=== PATIENT | male | born 1935 | race Caucasian/White ===

== ENCOUNTER 2019-05-22 17:21 | Inpatient (IN) | payer OTHER ==
--- NOTE | 2019-05-22 18:55 | PDOC ---
Attending Attestation - Resident Resident Name: Bolivar Morejon - ED Attending Attestation I have performed the following: I have examined & evaluated the patient, The case was reviewed & discussed with the resident, I agree w/resident's findings & plan - HPI HPI: 05/22/19 19:17 Pt comes with fluid overload and SOB 05/22/19 19:18 Pt immediately given O2 facemask 100%NRB, 2SLNTG, 1inch nitro paste; biPAP started. 80 lasix, IV placed, labs ordered. Pt will have CXR and EKG Pt will get duplex dopplers. - Physicial Exam PE: 05/22/19 23:19 Pt has + pitting edema up legs; pt has early cellulitis on lower leg Pt has no fevers and no chills. Rapid afib and breathing heavily Coarse breath sounds Heat irreg irreg and tahcycardic Abd soft NT ND No flank pain No rashes. - Medical Decision Making 05/22/19 19:19 Vitals down to 120HR BP 138 05/22/19 20:04 CBC is normal Chem normal Card enzymes normal BUN/Cr normal; slightly prerenal EKG rapid afib CXR: bilateral fluffy effusion 05/22/19 21:41 Pt has +UTI and + cellulitis on the right lower leg; he will be treated with levaquin IV Pt has elevated D-Dimer and he quit his eliquis so he likely had DVT/PE and we will treat with Lovenox 05/22/19 22:08 Patient Name: ABBI LOTT THIS IS A PRELIMINARY REPORT FROM [facility] DATE OF SERVICE: 2019-05-22 20:50:43 IMAGES: [id number] EXAM: CHEST CTA, CT pulmonary angiogram. HISTORY: Suspected pulmonary embolus. 83-year-old male. COMPARISON: None. FINDINGS: Good opacification of the pulmonary arteries is seen into the segmental branches. No intraluminal filling defects. ASVD of the aorta. The aorta is without dissection. The anterior mediastinal fat is well preserved. Cardiomegaly with four-chamber enlargement. Aortic and mitral valve disease. Proximal two-vessel coronary artery disease. No pericardial effusion. No hilar or mediastinal adenopathy. Extremely large bilateral pleural effusions. Near-complete collapse of both the right and left lower lobes. Thyroid gland is normal in appearance. No axillary adenopathy. Upper abdomen is unremarkable. Ankylosis of the entire cervical and thoracic spine within the field of view. IMPRESSION No evidence of pulmonary embolus. Extremely large bilateral pleural effusions. Near-complete collapse of both the right and left lower lobes. Cardiomegaly with four-chamber enlargement. Pulmonary venous hypertension. Mild incipient pulmonary edema. 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 05/22/19 22:09 Pt will be admitted for pleural effusions. 05/22/19 22:22 Dr. Cristina is aware of the patient and he wants the patient to be admitted to the ICU
[2019-05-22] MEDS ORDERED: NITROGLYCERIN 2% OINTMENT - 1GM PACKET TD ONE ×2 (18:59→19:00)
[2019-05-22] MEDS ORDERED: FUROSEMIDE 40 MG/4 ML INJECTABLE VIAL ONE (18:59)
[2019-05-22] MEDS ORDERED: NITROGLYCERIN SUBLINGUAL 1/150 0.4 MG TAB SL ONE (19:00)
[2019-05-22] MEDS ORDERED: dilTIAZem HCL 125 MG/25 ML - 25 ML VIAL ONE (19:10)
[2019-05-22] MEDS ORDERED: dilTIAZem HCL 50 MG/10 ML - 10 ML VIAL IVPUSH ONE (19:10)
[2019-05-22] MEDS ORDERED: SODIUM CHLORIDE 0.9% 500 ML INFUS.BAG IV ONE (19:13)
[2019-05-22] MEDS ORDERED: FUROSEMIDE 40 MG/4 ML INJECTABLE VIAL IVPUSH ONE ×2 (19:14→23:28)
--- NOTE | 2019-05-22 19:22 | PDOC ---
History of Present Illness - General History Source: Patient, Family Exam Limitations: No Limitations - History of Present Illness Initial Comments: 83 y/o F, pmh of parkinsons, htn, dm, Aa-fib, prostate cancer- status unknown, presents to the ED c/o of shortness of breath of 1 day duration that began spontaneously today morning. In the ED pt was hypoxic to the 80s, had afib with rvr to the 140s and b/l LE swelling. He does not follow a actuarial director and only follows his PCP Dr. Flor. Denies f/c/n/v/chest pain, back pain, abdominal pain, headaches, changes in vision, diarrhea, nuasea, vomit. 05/22/19 19:19 Associated Symptoms: reports: denies symptoms, shortness of breath. denies: chest pain, cough, diaphoresis, fever/chills, headaches, nausea/vomiting, rash, seizure, weakness <Bolivar Morejon - Last Filed: 05/22/19 20:47> <Carina Leon - Last Filed: 05/22/19 22:18> - General Chief Complaint: Edema Stated Complaint: SOB/SWELLIN IN LEGS BILAT Time Seen by Provider: 05/22/19 18:27 Past History - Travel Traveled outside of the country in the last 30 days: No Close contact w/someone who was outside of country & ill: No - Past Medical History Cancer: Yes (prostate) Cardiac Disorders: Yes (afib) COPD: No Diabetes: Yes HTN: Yes Other medical history: parkinson - Surgical History Abdominal Surgery: Yes (hernia inguinal) - Immunization History Immunization Up to Date: Yes - Psycho Social/Smoking Cessation Hx Smoking History: Former smoker Have you smoked in the past 12 months: No If you are a former smoker, when did you quit?: 50 years ago Information on smoking cessation initiated: No Hx Alcohol Use: No Drug/Substance Use Hx: No Substance Use Type: None Hx Substance Use Treatment: No <Bolivar Morejon - Last Filed: 05/22/19 20:47> <Carina Leon - Last Filed: 05/22/19 22:18> - Past Medical History Allergies/Adverse Reactions: Allergies Allergy/AdvReac Type Severity Reaction Status Date / Time aspirin Allergy Verified 05/22/19 20:05 Home Medications: Ambulatory Orders Tamsulosin HCl [Flomax -] 0.4 mg PO DAILY 03/14/16 Carbidopa/Levodopa [Sinemet -] 1 each PO TID #0 tablet 03/18/16 Lisinopril [Prinivil] 5 mg PO DAILY #0 tablet 03/18/16 Metoprolol Tartrate [Lopressor -] 50 mg PO BID #0 tablet 03/18/16 Glipizide/Metformin HCl [Glipizide-Metformin 5-500 mg] 1 tab PO BID 05/22/19 Review of Systems - Review of Systems Able to Perform ROS?: Yes Is the patient limited Danish proficient: No Constitutional: Yes: Symptoms Reported, Weight Stable. No: Chills, Diaphoresis , Fever, Weakness HEENTM: Yes: Symptoms Reported. No: Blurred Vision Respiratory: Yes: Symptoms reported, Cough, Shortness of Breath. No: Wheezing, Productive cough Cardiac (ROS): Yes: Symptoms Reported, Edema, Irregular Heart Rate. No: Chest Pain, Lightheadedness, Palpitations, Chest Tightness ABD/GI: Yes: Symptoms Reported. No: Constipated, Diarrhea, Nausea, Vomiting : Yes: Symptoms Reported Musculoskeletal: Yes: Symptoms Reported. No: Back Pain Neurological: Yes: Symptoms reported. No: Headache, Numbness, Paresthesia, Tingling, Tremors, Weakness <Bolivar Morejon - Last Filed: 05/22/19 20:47> *Physical Exam - Vital Signs Last Vital Signs Temp Pulse Resp BP Pulse Ox 97.6 F 119 H 22 H 165/105 H 99 05/22/19 18:20 05/22/19 19:05 05/22/19 19:05 05/22/19 19:05 05/22/19 18:20 - Physical Exam General Appearance: Yes: Appropriately Dressed, Mild Distress, Cachetic HEENT: positive: EOMI, BECKY, Normal ENT Inspection, Pharynx Normal Neck: positive: Trachea midline, Normal Thyroid, Supple Respiratory/Chest: positive: Lungs Clear, Normal Breath Sounds Cardiovascular: positive: S1, S2, Edema, Tachycardia, Irregularly Irregular. negative: Regular Rhythm, Regular Rate, Murmur, Gallop/S3, Gallop/S4 Vascular Pulses: Dorsalis-Pedis (R): 2+, Doralis-Pedis (L): 2+ Gastrointestinal/Abdominal: positive: Normal Bowel Sounds, Soft Extremity: positive: Pedal Edema. 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 negative: Motor Strength 5/5 <Bolivar Morejon - Last Filed: 05/22/19 20:47> - Vital Signs Last Vital Signs Temp Pulse Resp BP Pulse Ox 97.6 F 105 H 18 133/91 100 05/22/19 18:20 05/22/19 19:57 05/22/19 19:57 05/22/19 19:57 05/22/19 19:57 <Carina Leon - Last Filed: 05/22/19 22:18> ED Treatment Course - LABORATORY CBC & Chemistry Diagram: 05/22/19 19:10 05/22/19 19:10 - RADIOLOGY Radiology Studies Ordered: Category Date Time Status CHEST X-RAY PORTABLE* [RAD] Stat Radiology 05/22/19 19:13 Ordered <Bolivar Morejon - Last Filed: 05/22/19 20:47> - LABORATORY CBC & Chemistry Diagram: 05/22/19 19:10 05/22/19 19:10 - ADDITIONAL ORDERS Additional order review: Laboratory Results 05/22/19 05/22/19 05/22/19 20:22 19:41 19:10 PT with INR 12.90 INR 1.09 PTT (Actin FS) 36.0 D-Dimer Sodium Potassium Chloride Carbon Dioxide Anion Gap BUN Creatinine Est GFR (CKD-EPI)AfAm Est GFR (CKD-EPI)NonAf Random Glucose Lactic Acid 1.5 Calcium Total Bilirubin AST ALT Alkaline Phosphatase Creatine Kinase Troponin I B-Natriuretic Peptide Total Protein Albumin Urine Color Yellow Urine Appearance Clear Urine pH 5.0 Ur Specific [place] 1.018 Urine Protein 1+ H Urine Glucose (UA) Trace Urine Ketones Negative Urine Blood 2+ H Urine Nitrite Positive H Urine Bilirubin Negative Urine Urobilinogen 1.0 Ur Leukocyte Esterase 1+ H Urine WBC (Auto) 15 Urine RBC (Auto) 2 Urine Casts (Auto) 1 U Epithel Cells (Auto) 0.9 Urine Bacteria (Auto) 19.3 05/22/19 05/22/19 05/22/19 19:10 19:10 19:10 PT with INR INR PTT (Actin FS) D-Dimer 1383 H Sodium 141 141 Potassium 4.0 4.0 Chloride 107 107 Carbon Dioxide 29 26 Anion Gap 5 L 8 BUN 22.3 H 22.4 H Creatinine 0.6 0.6 Est GFR (CKD-EPI)AfAm 108.52 108.52 Est GFR (CKD-EPI)NonAf 93.63 93.63 Random Glucose 208 H 198 H Lactic Acid Calcium 8.7 8.7 Total Bilirubin 0.7 AST 20 ALT 34 Alkaline Phosphatase 122 H Creatine Kinase 42 Troponin I < 0.02 B-Natriuretic Peptide 4864.3 H Total Protein 7.0 Albumin 3.4 Urine Color Urine Appearance Urine pH Ur Specific [place] Urine Protein Urine Glucose (UA) Urine Ketones Urine Blood Urine Nitrite Urine Bilirubin Urine Urobilinogen Ur Leukocyte Esterase Urine WBC (Auto) Urine RBC (Auto) Urine Casts (Auto) U Epithel Cells (Auto) Urine Bacteria (Auto) 05/22/19 19:10 RBC 4.48 MCV 95.0 MCHC 33.2 RDW 14.7 MPV 9.5 Neutrophils % 84.3 H Lymphocytes % 7.1 L Monocytes % 7.7 Eosinophils % 0.4 Basophils % 0.5 - RADIOLOGY Radiology Studies Ordered: Category Date Time Status CHEST CTA [CT] Stat CT Scan 05/22/19 20:22 Taken DUPLEX VASCUL US-2LEGS [US] Stat Ultrasound 05/22/19 19:16 Taken - Medications Given in the ED: ED Medications Discontinued Medications Generic Name Dose Route Start Last Admin Trade Name Freq PRN Reason Stop Dose Admin Diltiazem HCl 10 mg 05/22/19 19:10 05/22/19 19:15 Cardizem Injection - IVPUSH 05/22/19 19:11 10 mg ONCE ONE Administration Enoxaparin Sodium 80 mg 05/22/19 20:24 05/22/19 20:34 Lovenox - SQ 05/22/19 20:25 80 mg ONCE ONE Administration Furosemide 80 mg 05/22/19 19:14 05/22/19 19:05 Lasix Injection - IVPUSH 05/22/19 19:15 80 mg ONCE ONE Administration Levofloxacin 500 mg in 100 mls @ 100 mls/hr 05/22/19 20:48 05/22/19 21:45 Levaquin 500 Mg Premixed Ivpb - IVPB 05/22/19 21:47 100 mls/hr ONCE ONE Administration Protocol Nitroglycerin 0.8 mg 05/22/19 19:00 05/22/19 19:00 Nitrostat - SL 05/22/19 19:01 0.8 mg ONCE ONE Administration Nitroglycerin 1 inch 05/22/19 19:00 05/22/19 19:05 Nitro-Bid 2% Paste - TD 05/22/19 19:01 1 inch ONCE ONE Administration Sodium Chloride 250 ml 05/22/19 19:13 05/22/19 19:30 Normal Saline - IV 05/22/19 19:14 250 ml ONCE ONE Administration <Carina Leon - Last Filed: 05/22/19 22:18> Medical Decision Making - Medical Decision Making 83 y/o F, pmh of parkinsons, htn, dm, Aa-fib, prostate cancer- status unknown, presents to the ED c/o of shortness of breath of 1 day duration that began spontaneously #Shortness of breath 2/2 to A-fib w/ RVR and fluid overload PE: significant b/l LE edema EKG trops trend Cardiac profile ordered BNP ordered f/u cbc, cmp D dimers Diltizem 10 IV push given Lasix 80 SL Nitroglycerine given CXR for pul edema will monitor on tele contacted Dr. Flor, will wait for his response 05/22/19 19:32 05/22/19 19:36 <Bolivar Morejon - Last Filed: 05/22/19 20:47> Discharge <Bolivar Morejon - Last Filed: 05/22/19 20:47> - Discharge Information Problems reviewed: Yes - Admission Yes <Carina Leon - Last Filed: 05/22/19 22:18> - Discharge Information Clinical Impression/Diagnosis: Afib, Hypertension, Diabetes mellitus, CHF (congestive heart failure), UTI ( urinary tract infection), Cellulitis, Tachycardia, Dyspnea, Hypoxemia Condition: Critical - Follow up/Referral Referrals: Malou Cristina MD [Primary Care Provider] -
[2019-05-22 19:25] LABS: BASO % 0.5 % (0-2.0); EOS % 0.4 % (0-4.5); HEMATOCRIT 42.5 % (35.4-49); HEMOGLOBIN 14.1 GM/dL (11.7-16.9); LYMPH % 7.1 % (8-40); MCH 31.5 pg (25.7-33.7); MCHC 33.2 g/dl (32.0-35.9); MEAN PLT VOLUME 9.5 fl (7.5-11.1); MONO % 7.7 % (3.8-10.2); NEUT % 84.3 % (42.8-82.8); PLATELET COUNT 244 K/MM3 (134-434); RBC 4.48 M/mm3 (4.00-5.60); RDW 14.7 % (11.9-15.9); WHITE BLOOD COUNT 9.5 K/mm3 (4.0-10.0)
[2019-05-22 19:52] LABS: ALBUMIN 3.4 g/dl (3.4-5.0); BILIRUBIN,TOTAL 0.7 mg/dL (0.2-1); BLOOD UREA NITROGEN 22.3 mg/dL (7-18); CALCIUM 8.7 mg/dL (8.5-10.1); CREATININE 0.6 mg/dL (0.55-1.3)
[2019-05-22 20:23] LABS: EPI CELLS 0.9 /HPF (0-5/HPF); HYALINE CASTS 1 /lpf (0-8); URINE APPEARANCE CLEAR; URINE BACTERIA 19.3 /hpf (NEGATIVE); URINE BILIRUBIN NEGATIVE (NEGATIVE); URINE COLOR YELLOW; URINE GLUCOSE (UA) TRACE (NEGATIVE); URINE KETONE NEGATIVE (NEGATIVE); URINE LEUK ESTERASE 1+ (NEGATIVE); URINE NITRITE POSITIVE (NEGATIVE); URINE PROTEIN 1+ (NEGATIVE); URINE RBC 2 /hpf (0-4); URINE WBC 15 /hpf (0-5)
[2019-05-22] MEDS ORDERED: ENOXAPARIN NA (PORCINE) 80 MG/0.8 ML DISP.SYRIN SQ ONE ×2 (20:24→20:29)
[2019-05-22 20:27] LABS: N-TERMINAL BNP 4864.3 pg/ml (5-450)
[2019-05-22 20:35] LABS: ANION GAP 8 MMOL/L (8-16); BLOOD UREA NITROGEN 22.4 mg/dL (7-18); CALCIUM 8.7 mg/dL (8.5-10.1); CHLORIDE 107 mmol/L (98-107); CO2 26 mmol/L (21-32); CREATININE 0.6 mg/dL (0.55-1.3); GLUCOSE,RANDOM 198 mg/dL (74-106); SODIUM 141 mmol/L (136-145)
[2019-05-22 21:05] LABS: INR 1.09 (0.83-1.09); PROTHROMBIN TIME (PATIENT) 12.9 SEC (9.7-13.0)
[2019-05-22] MEDS ORDERED: METOPROLOL TARTRATE 5 MG/5 ML VIAL IVPUSH PRN (23:27)
[2019-05-22] MEDS ORDERED: ALBUTEROL SO4 0.083% IH SOL 2.5 MG/3 ML VIAL.NEB. NEB PRN (23:32)
[2019-05-22 23:33] LABS: ARTERIAL BLD GAS O2 SATURATION 99.9 % (95-98); ARTERIAL BLOOD GAS BASE EXCESS 4.9 meq/l (-2-2); ARTERIAL BLOOD GAS PCO2 36.8 mmHg (35-45); ARTERIAL BLOOD GAS PO2 485 mmHg (80-100); ARTERIAL BLOOD GAS pH 7.49 (7.35-7.45)
[2019-05-22 23:34] LABS: ALLENS TEST POSITIVE
--- NOTE | 2019-05-22 23:39 | CONSULT ---
Consultation: REQUESTING PROVIDER: CONSULT REQUEST: We have been asked to medically evaluate this patient for respiratory distress & altered mental status. HISTORY OF PRESENT ILLNESS: 83 y.o. M HTN, DM, A-fib (prescribed eliquis by Dr. Flor although has not been taking it), prostate CA (s/p hormone therapy tx- no chemo/rad/surg) presenting with SOB and AMS x 1 week. History obtained mostly from son at bedside. Over the past week he has become "not himself", and seems altered with increasing shortness of breath on exertion, now present at rest. He has been having frequent nighttime awakenings and gait has been unsteady. Also endorses a nonproductive cough for the past few days. For the past few weeks he has also had increasing b/l LE edema. 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 Sees Dr. Flor for primary care. Diagnosed w/ A-fib in the past few months & was started on Eliquis although the patient has been non-compliant. Denies fevers/ chills/ LARSON/ N/V/D/ orthopnea/ paroxysmal nocturnal dyspnea/ weight changes/ appetite changes. REVIEW OF SYSTEMS: CONSTITUTIONAL: Absent: fever, chills, diaphoresis, generalized weakness, malaise, loss of appetite, weight change HEENT: Absent: rhinorrhea, nasal congestion, throat pain, throat swelling, difficulty swallowing, mouth swelling, ear pain, eye pain, visual changes CARDIOVASCULAR: A-fib w/ RVR, peripheral edema Absent: chest pain, syncope, palpitations, lightheadedness RESPIRATORY: shortness of breath Absent: cough, dyspnea with exertion, orthopnea, wheezing, stridor, hemoptysis GASTROINTESTINAL: Absent: abdominal pain, abdominal distension, nausea, vomiting, diarrhea, constipation, melena, hematochezia GENITOURINARY: hesitancy, polyuria Absent: dysuria, frequency, urgency, hematuria, flank pain, genital pain MUSCULOSKELETAL: Absent: myalgia, arthralgia, joint swelling, back pain, neck pain SKIN: Absent: rash, itching, pallor HEMATOLOGIC/IMMUNOLOGIC: Absent: easy bleeding, easy bruising, lymphadenopathy, frequent infections ENDOCRINE: Absent: unexplained weight gain, unexplained weight loss, heat intolerance, cold intolerance NEUROLOGIC: , unsteady gait, mental status changes Absent: headache, focal weakness or paresthesias, dizziness, seizure, bladder or bowel incontinence PSYCHIATRIC: Absent: anxiety, depression, suicidal or homicidal ideation, hallucinations. PHYSICAL EXAMINATION Vital Signs - 24 hr 05/22/19 05/22/19 05/22/19 17:45 18:20 19:05 Temperature 97.4 F L 97.6 F Pulse Rate 124 H 130 H Pulse Rate [ 119 H Apical] Respiratory 20 32 H 22 H Rate Blood Pressure 197/121 H Blood Pressure 165/105 H [Left Arm] Blood Pressure [Right Arm] O2 Sat by Pulse 96 99 Oximetry (%) 05/22/19 05/22/19 05/22/19 19:10 19:15 19:30 Temperature Pulse Rate Pulse Rate [ 115 H 94 H Apical] Respiratory 21 H 26 H Rate Blood Pressure Blood Pressure [Left Arm] Blood Pressure 132/84 113/88 [Right Arm] O2 Sat by Pulse 100 100 100 Oximetry (%) 05/22/19 05/22/19 05/22/19 19:50 19:57 22:30 Temperature Pulse Rate Pulse Rate [ 104 H 105 H 100 H Apical] Respiratory 24 H 18 22 H Rate Blood Pressure Blood Pressure 139/78 [Left Arm] Blood Pressure 133/91 133/91 [Right Arm] O2 Sat by Pulse 100 100 100 Oximetry (%) GENERAL: AOx1 oriented to self not time or place. HEENT: NCAT. L cheek superficial scrape LUNGS: B/l crackles predominantly lower lobes, present minimally in upper lobes. On BIPAP. No incr work of breathing no use of accessory muscles HEART: A-fib w/ RVR. Soft murmur heard ABDOMEN: Soft NTND no suprapubic tenderness. + bowel sounds MUSCULOSKELETAL: No CVA tenderness. EXTREMITIES: Pulses palpated 2+ b/l. 2+ pitting edema, weeping to R anterior ortega. No calf tenderness Laboratory Results - last 24 hr 05/22/19 05/22/19 05/22/19 19:10 19:10 19:10 WBC 9.5 RBC 4.48 Hgb 14.1 Hct 42.5 D MCV 95.0 MCH 31.5 MCHC 33.2 RDW 14.7 Plt Count 244 MPV 9.5 Absolute Neuts (auto) 8.0 Neutrophils % 84.3 H Lymphocytes % 7.1 L Monocytes % 7.7 Eosinophils % 0.4 Basophils % 0.5 Nucleated RBC % 0 PT with INR INR PTT (Actin FS) D-Dimer 1383 H Puncture Site ABG pH ABG pCO2 at Pt Temp ABG pO2 at Pt Temp ABG HCO3 ABG O2 Sat (Measured) ABG O2 Content ABG Base Excess Conner Test O2 Delivery Device Oxygen Flow Rate Vent Mode Vent Rate Pressure Support Vent Sodium 141 Potassium 4.0 Chloride 107 Carbon Dioxide 26 Anion Gap 8 BUN 22.4 H Creatinine 0.6 Est GFR (CKD-EPI)AfAm 108.52 Est GFR (CKD-EPI)NonAf 93.63 Random Glucose 198 H Lactic Acid Calcium 8.7 Total Bilirubin AST ALT Alkaline Phosphatase Creatine Kinase 42 Troponin I < 0.02 B-Natriuretic Peptide Total Protein Albumin Urine Color Urine Appearance Urine pH Ur Specific [place] Urine Protein Urine Glucose (UA) Urine Ketones Urine Blood Urine Nitrite Urine Bilirubin Urine Urobilinogen Ur Leukocyte Esterase Urine WBC (Auto) Urine RBC (Auto) Urine Casts (Auto) U Epithel Cells (Auto) Urine Bacteria (Auto) 05/22/19 05/22/19 05/22/19 19:10 19:10 19:41 WBC RBC Hgb Hct MCV MCH MCHC RDW Plt Count MPV Absolute Neuts (auto) Neutrophils % Lymphocytes % Monocytes % Eosinophils % Basophils % Nucleated RBC % PT with INR INR PTT (Actin FS) D-Dimer Puncture Site ABG pH ABG pCO2 at Pt Temp ABG pO2 at Pt Temp ABG HCO3 ABG O2 Sat (Measured) ABG O2 Content ABG Base Excess Conner Test O2 Delivery Device Oxygen Flow Rate Vent Mode Vent Rate Pressure Support Vent Sodium 141 Potassium 4.0 Chloride 107 Carbon Dioxide 29 Anion Gap 5 L BUN 22.3 H Creatinine 0.6 Est GFR (CKD-EPI)AfAm 108.52 Est GFR (CKD-EPI)NonAf 93.63 Random Glucose 208 H Lactic Acid 1.5 Calcium 8.7 Total Bilirubin 0.7 AST 20 ALT 34 Alkaline Phosphatase 122 H Creatine Kinase Troponin I B-Natriuretic Peptide 4864.3 H Total Protein 7.0 Albumin 3.4 Urine Color Yellow Urine Appearance Clear Urine pH 5.0 Ur Specific [place] 1.018 Urine Protein 1+ H Urine Glucose (UA) Trace Urine Ketones Negative Urine Blood 2+ H Urine Nitrite Positive H Urine Bilirubin Negative Urine Urobilinogen 1.0 Ur Leukocyte Esterase 1+ H Urine WBC (Auto) 15 Urine RBC (Auto) 2 Urine Casts (Auto) 1 U Epithel Cells (Auto) 0.9 Urine Bacteria (Auto) 19.3 05/22/19 05/22/19 20:22 23:20 WBC RBC Hgb Hct MCV MCH MCHC RDW Plt Count MPV Absolute Neuts (auto) Neutrophils % Lymphocytes % Monocytes % Eosinophils % Basophils % Nucleated RBC % PT with INR 12.90 INR 1.09 PTT (Actin FS) 36.0 D-Dimer Puncture Site Left radial ABG pH 7.49 H ABG pCO2 at Pt Temp 36.8 ABG pO2 at Pt Temp 485 H ABG HCO3 28.0 H ABG O2 Sat (Measured) 99.9 H ABG O2 Content 20.1 ABG Base Excess 4.9 H Conner Test Positive O2 Delivery Device Bipap Oxygen Flow Rate 100% Vent Mode S/t Vent Rate 14 Pressure Support Vent 12/5 Sodium Potassium Chloride Carbon Dioxide Anion Gap BUN Creatinine Est GFR (CKD-EPI)AfAm Est GFR (CKD-EPI)NonAf Random Glucose Lactic Acid Calcium Total Bilirubin AST ALT Alkaline Phosphatase Creatine Kinase Troponin I B-Natriuretic Peptide Total Protein Albumin Urine Color Urine Appearance Urine pH Ur Specific [place] Urine Protein Urine Glucose (UA) Urine Ketones Urine Blood Urine Nitrite Urine Bilirubin Urine Urobilinogen Ur Leukocyte Esterase Urine WBC (Auto) Urine RBC (Auto) Urine Casts (Auto) U Epithel Cells (Auto) Urine Bacteria (Auto) Active Medications Generic Name Dose Route Start Last Admin Trade Name Freq PRN Reason Stop Dose Admin Albuterol Sulfate 1 amp 05/22/19 23:32 Ventolin 0.083% Nebulizer Soln - NEB Q1H PRN SHORT OF BREATH/WHEEZING Chlorhexidine Gluconate 1 applic 05/23/19 22:00 Hibiclens For Decolonization - TP HS YOON Enoxaparin Sodium 80 mg 05/23/19 10:00 Lovenox - SQ BID YOON Furosemide 80 mg 05/22/19 23:28 Lasix Injection - IVPUSH 05/22/19 23:29 ONCE ONE Furosemide 60 mg 05/23/19 10:00 Lasix Injection - IVPUSH DAILY YOON Insulin Aspart 1 vial 05/23/19 07:00 Novolog Vial Sliding Scale - SQ ACHS YOON Protocol Metoprolol Tartrate 50 mg 05/22/19 23:30 Lopressor - PO BID [facility] Metoprolol Tartrate 5 mg 05/22/19 23:27 Lopressor Injection - IVPUSH Q4H PRN HYPERTENSION Mupirocin 1 applic 05/23/19 10:00 Bactroban Ointment (For Decolonization) - NS 05/28/19 09:59 BID YOON ASSESSMENT/PLAN: 83 y.o. M HTN, DM, A-fib (noncompliant w/ eliquis), prostate CA (s/p hormone therapy tx) presenting with SOB and AMS x 1 week. Found to have extensive b/l pleural effusions. #Neuro -AOx1 altered from baseline (as per son pt is AOx3) -neuro checks #CV -Hypertensive emergency: resolved; s/p Diltiazem, nitro (SL & paste in ED). -Monitor vitals closely -EKG shows A-fib w/ RVR rate in 140s -C/w home dose metoprolol 50mg PO BID -Lopressor 5mg IV PRN -BNP 4864 -Trops neg x1 -F/u Echo -S/p 80mg Lasix IV; orered +1 dose 80mg Lasix IV -S/p diltiazem 10mg IV, SL nitro & nitro paste in ED -Continuing home metoprolol; Lopressor IV PRN -cardio consulted (Dr. Rodriguez) -Strict Is & Os -Daily weights -DVT study negative #Pulm -D-dimer elevated -ABG (taken post- bipap)-- pH 7.49 pO2 485-- o2 decreased in ED satting well on bipap -CTA chest shows extremely large b/l pleural effusions. Near complete collapse of both R & L lower lobes. -ICU monitoring -PRN nebulizer -F/u repeat CXR in AM -Consider pleural eff. tap to assess effusion source-- chf vs mets? #Endo -BGMs ACHS -ISS -F/u HbA1c # -UA 1+ protein , 2+ blood, 1+ LE & nitrite -F/u urine cx -Pérez inserted, follow strict outputs -Starting ceftriaxone #ID -F/u blood cx's -S/p 1 dose levaquin in ED #FEN -No fluids -Trend lytes replete prn -NPO #PPX -Full dose lovenox Dispo: We will continue to follow the patient. Thank you for this consultative opportunity. ATTENDING PHYSICIAN STATEMENT I saw and evaluated the patient. I reviewed the resident's note and discussed the case with the resident. I agree with the resident's findings and plan as documented. SUBJECTIVE: OBJECTIVE: ASSESSMENT AND PLAN:
[2019-05-23] MEDS ORDERED: METOPROLOL TARTRATE 50 MG TABLET (FP) ONE (00:32)
[2019-05-23] MEDS ORDERED: FUROSEMIDE 40 MG/4 ML INJECTABLE VIAL ONE (00:32)
[2019-05-23] MEDS: METOPROLOL TARTRATE 50 MG TABLET (FP) PO SCH ×3 (00:41→21:06)
[2019-05-23 02:03] VITALS: BMI 27.3
[2019-05-23 07:36] LABS: BASO % 0.6 % (0-2.0); EOS % 0.6 % (0-4.5); HEMATOCRIT 39.4 % (35.4-49); HEMOGLOBIN 13.1 GM/dL (11.7-16.9); LYMPH % 10.6 % (8-40); MCH 31.2 pg (25.7-33.7); MCHC 33.1 g/dl (32.0-35.9); MONO % 9.5 % (3.8-10.2); NEUT % 78.7 % (42.8-82.8); PLATELET COUNT 223 K/MM3 (134-434); RBC 4.19 M/mm3 (4.00-5.60); RDW 14.2 % (11.9-15.9); WHITE BLOOD COUNT 8.8 K/mm3 (4.0-10.0)
[2019-05-23 07:49] LABS: BLOOD UREA NITROGEN 17.2 mg/dL (7-18); CALCIUM 8.4 mg/dL (8.5-10.1); CREATININE 0.5 mg/dL (0.55-1.3); MAGNESIUM 1.8 mg/dL (1.8-2.4); POTASSIUM 3.4 mmol/L (3.5-5.1); TOT PROT 6.4 g/dl (6.4-8.2)
[2019-05-23 07:53] LABS: INR 1.27 (0.83-1.09)
[2019-05-23 07:55] LABS: ACTIVATED PTT 38.5 SECONDS (25.2-36.5)
[2019-05-23] MEDS ORDERED: ENOXAPARIN NA (PORCINE) 80 MG/0.8 ML DISP.SYRIN SQ SCH (10:00)
[2019-05-23] MEDS ORDERED: FUROSEMIDE 40 MG/4 ML INJECTABLE VIAL IVPUSH SCH (10:00)
[2019-05-23] MEDS ORDERED: PNEUMOC 13-VAL CONJ-DIP CRM/PF 0.5 ML DISP.SYRIN IM ONE (10:00)
[2019-05-23] MEDS ORDERED: cefTRIAXone SODIUM 1 GM VIAL ONE (10:07)
[2019-05-23] MEDS ORDERED: DEXTROSE 5%-WATER - 50 ML IVPB ONE (10:08)
[2019-05-23] MEDS: FUROSEMIDE 40 MG/4 ML INJECTABLE VIAL IVPUSH SCH ×2 (10:27→14:31)
[2019-05-23] MEDS: CEFTRIAXONE 1 GM in DEXTROSE 5%-WATER - 50 ML IVPB SCH (10:28)
[2019-05-23] MEDS: MUPIROCIN 2% TOPICAL OINTMENT FOR DECOLONIZATION NS SCH ×2 (10:30→21:00)
[2019-05-23] MEDS: APIXABAN 5 MG TABLET PO SCH ×2 (10:34→21:06)
--- NOTE | 2019-05-23 11:10 | PN ---
Teaching Attending Note Name of Resident: Christiano Amos ATTENDING PHYSICIAN STATEMENT I saw and evaluated the patient. I reviewed the resident's note and discussed the case with the resident. I agree with the resident's findings and plan as documented. SUBJECTIVE: Pt seen and examined in the ICU. Denies shortness of breath or chest pain. Diuresed well with lasix. OBJECTIVE: Vital Signs Period Temp Pulse Resp BP Sys/Ribera Pulse Ox Last 24 Hr 97.4 F-98.0 F 74-130 18-32 110-197/70-121 96-100 Intake & Output 05/20/19 05/21/19 05/22/19 05/23/19 23:59 23:59 23:59 23:59 Intake Total 250 Output Total 250 4500 Balance 0 -4500 Weight 81.391 kg 81.278 kg Gen: NAD at rest Heart: RRR Lung: scattered rhonchi Abd: soft, nontender Ext: + edema CBC, BMP 05/23/19 05:38 05/23/19 05:38 Active Medications Albuterol Sulfate (Ventolin 0.083% Nebulizer Soln -) 1 amp NEB Q1H PRN PRN Reason: SHORT OF BREATH/WHEEZING Apixaban (Eliquis -) 5 mg PO BID YOON Last Admin: 05/23/19 10:34 Dose: 5 mg Chlorhexidine Gluconate (Hibiclens For Decolonization -) 1 applic TP HS YOON Furosemide (Lasix Injection -) 40 mg IVPUSH BIDLASIX YOON Last Admin: 05/23/19 10:27 Dose: 40 mg Ceftriaxone Sodium 1 gm/ (Dextrose) 50 mls @ 100 mls/hr IVPB DAILY YOON; Protocol Last Admin: 05/23/19 10:28 Dose: 100 mls/hr Insulin Aspart (Novolog Vial Sliding Scale -) 1 vial SQ ACHS YOON; Protocol Metoprolol Tartrate (Lopressor -) 50 mg PO BID YOON Last Admin: 05/23/19 10:27 Dose: 50 mg Metoprolol Tartrate (Lopressor Injection -) 5 mg IVPUSH Q4H PRN PRN Reason: HYPERTENSION Mupirocin (Bactroban Ointment (For Decolonization) -) 1 applic NS BID YOON Stop: 05/28/19 09:59 Last Admin: 05/23/19 10:30 Dose: 1 applic ASSESSMENT AND PLAN: Hypertensive Urgency improving Decompensated CHF Atrial Fibrillation UTI HTN DM Prostate Ca - continue lasix - monitor urine output, creatinine - daily weights - O2 to keep SpO2 >90% - rate control - continue anticoagulation - replete lytes - continue antibiotics - f/u cultures - PO as tolerated - can monitor on telemetry
[2019-05-23] MEDS: INSULIN SLIDING SCALE (NOVOLOG) 1 VIAL SQ SCH ×3 (11:15→21:05)
--- NOTE | 2019-05-23 11:50 | CON.CARD ---
Consult Consult Specialty:: Cardiology Referred by:: Hospitalist Medicine Reason for Consultation:: Dyspnea - History of Present Illness Chief Complaint: Dyspnea History of Present Illness: 83 year old male h/o HTN, DM, Parkinsons Disease, paroxysmal rapid afib noncompliant on Eliquis presented to the emergency department with SOB and AMS x 1 week, with increasing shortness of breath on exertion, now at rest, wheezing. He has been having frequent nighttime awakenings and gait has been unsteady, a nonproductive cough for the past few days. For the past few weeks he has also had increasing b/l LE edema. Noted to have HTN urgency and rapid afib, symptoms improving with diuresis and rate-control. - Past Medical History Cardio/Vascular: Yes: HTN Renal/: Yes: BPH Endocrine: Yes: Diabetes Mellitus - Alcohol/Substance Use Hx Alcohol Use: No - Smoking History Smoking history: Former smoker Have you smoked in the past 12 months: No If you are a former smoker, when did you quit?: 50 years ago Home Medications - Allergies Allergies/Adverse Reactions: Allergies Allergy/AdvReac Type Severity Reaction Status Date / Time aspirin Allergy Verified 05/22/19 20:05 - Home Medications Home Medications: Ambulatory Orders Tamsulosin HCl [Flomax -] 0.4 mg PO DAILY 03/14/16 Carbidopa/Levodopa [Sinemet -] 1 each PO TID #0 tablet 03/18/16 Lisinopril [Prinivil] 5 mg PO DAILY #0 tablet 03/18/16 Metoprolol Tartrate [Lopressor -] 50 mg PO BID #0 tablet 03/18/16 Glipizide/Metformin HCl [Glipizide-Metformin 5-500 mg] 1 tab PO BID 05/22/19 Review of Systems - Review of Systems Cardiovascular: reports: Edema, Shortness of Breath Respiratory: reports: Exercise Intolerance, Orthopnea, SOB, SOB on Exertion Vital Signs: Vital Signs Temperature 98.0 F 05/22/19 22:18 Pulse Rate 86 05/23/19 06:00 Respiratory Rate 19 05/23/19 04:00 Blood Pressure 115/86 05/23/19 06:00 O2 Sat by Pulse Oximetry (%) 100 05/23/19 08:24 Constitutional: Yes: No Distress, Calm Neck: Yes: Supple Respiratory: Yes: Regular, Diminished, On Nasal O2 Gastrointestinal: Yes: Normal Bowel Sounds, Soft Renal/: Yes: Pérez Present Cardiovascular: Yes: Pulse Irregular JVD: No Carotid Bruit: No Heart Sounds: Yes: S1, S2 Murmur: Yes: Systolic Murmur, Grade 1 Edema: Yes Edema: LLE: 2+, RLE: 2+ - Other Data Labs, Other Data: CBC, BMP 05/23/19 05:38 05/23/19 05:38 INR, PTT INR 1.27 (0.83-1.09) H 05/23/19 05:38 Troponin, BNP 05/22/19 05/22/19 19:10 19:10 Troponin I < 0.02 B-Natriuretic Peptide 4864.3 H Troponin, BNP 05/22/19 05/22/19 19:10 19:10 Troponin I < 0.02 B-Natriuretic Peptide 4864.3 H EKG shows A-fib w/ RVR rate in 140s Tele: Afib @ 80 Ejection Fraction %: LVEF > or = 40 % Imaging - Results Chest X-ray: Report Reviewed (CHF and bilateral effusions improving) Cat Scan: Report Reviewed (No PE, bilateral pleural effusions R>L) Problem List - Problems (1) Afib Code(s): I48.91 - UNSPECIFIED ATRIAL FIBRILLATION Qualifiers: Atrial fibrillation type: unspecified persistent Qualified Code(s): I48.19 - Other persistent atrial fibrillation; I48.1 - Persistent atrial fibrillation (2) Diabetes mellitus Code(s): E11.9 - TYPE 2 DIABETES MELLITUS WITHOUT COMPLICATIONS Qualifiers: Diabetes mellitus type: type 2 (3) Dyspnea Code(s): R06.00 - DYSPNEA, UNSPECIFIED (4) Hypertension Code(s): I10 - ESSENTIAL (PRIMARY) HYPERTENSION Qualifiers: Hypertension type: essential hypertension Qualified Code(s): I10 - Essential (primary) hypertension (5) CHF (congestive heart failure) Code(s): I50.9 - HEART FAILURE, UNSPECIFIED Qualifiers: Heart failure type: diastolic Heart failure chronicity: acute on chronic Qualified Code(s): I50.33 - Acute on chronic diastolic (congestive) heart failure Assessment/Plan 03/15/2016 Echo: Normal LV size and low normal LV fxn, normal RV size and fxn, mild LAE, mild MR, tr TR, AR 1. Acute on chronic diastolic heart failure with bilateral pleural effusions 2. Persistent atrial fibrillation with RVR [id number] noncmpliant with Eliquis 3. HTN heart disease with HTN urgency 4. Type 2 DM 5. Parkinson's Disease 6. UTI 7. Prostate Ca s/p hormone therapy tx 8. Toxic metabolic encephelopathy PLAN: 1. IV diuresis with monitor diuretic response, renal fxn and electrolytes, O2 to keep SpO2 >90%, replete K 2. Lopressor to 50 mg BID, Lopressor 5mg IV PRN and resume lisinopril 5 qd with uptitration as tolerated. Monitor rate response. 3. Continue Eliquis 5 mg BID given elevated risk score, emphasized importance of medication and diet compliance 4. Empiric abx per C&S 5. F/u echocardiogram to assess ventricular and valve fxn, check TSH and lipid panel 6. Thank you for consultative opportunity
[2019-05-23] MEDS ORDERED: POTASSIUM CHLORIDE TABS 20 MEQ TABLET.ER (FP) PO ONE (12:15)
[2019-05-23] MEDS: LISINOPRIL 5 MG TABLET (FP) PO SCH (12:36)
--- NOTE | 2019-05-23 12:51 | PN ---
Physical Exam: SUBJECTIVE: Patient seen and examined OBJECTIVE: Vital Signs Period Temp Pulse Resp BP Sys/Ribera Pulse Ox Last 24 Hr 97.4 F-98.0 F 74-130 18-32 110-197/70-121 96-100 GENERAL: The patient is awake, alert, and fully oriented, in no acute distress. HEAD: Normal with no signs of trauma. EYES: PERRL, extraocular movements intact, sclera anicteric, conjunctiva clear. No ptosis. ENT: Ears normal, nares patent, oropharynx clear without exudates, moist mucous membranes. NECK: Trachea midline, LUNGS: decreased breath sounds lung bases bilaterally. HEART: irregular rhythm, normal rate. ABDOMEN: Soft, nontender, nondistended, normoactive bowel sounds, no guarding, no rebound, no hepatosplenomegaly, no masses. EXTREMITIES: 2+ pulses, warm, well-perfused, pitting edema.right leg with anterior wound. NEUROLOGICAL: Cranial nerves II through XII grossly intact. PSYCH: Normal mood, normal affect. SKIN: Warm, dry, normal turgor, no rashes or lesions noted Laboratory Results - last 24 hr 05/22/19 05/22/19 05/22/19 19:10 19:10 19:10 WBC 9.5 RBC 4.48 Hgb 14.1 Hct 42.5 D MCV 95.0 MCH 31.5 MCHC 33.2 RDW 14.7 Plt Count 244 MPV 9.5 Absolute Neuts (auto) 8.0 Neutrophils % 84.3 H Lymphocytes % 7.1 L Monocytes % 7.7 Eosinophils % 0.4 Basophils % 0.5 Nucleated RBC % 0 PT with INR INR PTT (Actin FS) D-Dimer 1383 H Puncture Site ABG pH ABG pCO2 at Pt Temp ABG pO2 at Pt Temp ABG HCO3 ABG O2 Sat (Measured) ABG O2 Content ABG Base Excess Conner Test O2 Delivery Device Oxygen Flow Rate Vent Mode Vent Rate Pressure Support Vent Sodium 141 Potassium 4.0 Chloride 107 Carbon Dioxide 26 Anion Gap 8 BUN 22.4 H Creatinine 0.6 Est GFR (CKD-EPI)AfAm 108.52 Est GFR (CKD-EPI)NonAf 93.63 POC Glucometer Random Glucose 198 H Hemoglobin A1c % Lactic Acid Calcium 8.7 Phosphorus Magnesium Total Bilirubin AST ALT Alkaline Phosphatase Creatine Kinase 42 Troponin I < 0.02 B-Natriuretic Peptide Total Protein Albumin Urine Color Urine Appearance Urine pH Ur Specific [place] Urine Protein Urine Glucose (UA) Urine Ketones Urine Blood Urine Nitrite Urine Bilirubin Urine Urobilinogen Ur Leukocyte Esterase Urine WBC (Auto) Urine RBC (Auto) Urine Casts (Auto) U Epithel Cells (Auto) Urine Bacteria (Auto) 05/22/19 05/22/19 05/22/19 19:10 19:10 19:41 WBC RBC Hgb Hct MCV MCH MCHC RDW Plt Count MPV Absolute Neuts (auto) Neutrophils % Lymphocytes % Monocytes % Eosinophils % Basophils % Nucleated RBC % PT with INR INR PTT (Actin FS) D-Dimer Puncture Site ABG pH ABG pCO2 at Pt Temp ABG pO2 at Pt Temp ABG HCO3 ABG O2 Sat (Measured) ABG O2 Content ABG Base Excess Conner Test O2 Delivery Device Oxygen Flow Rate Vent Mode Vent Rate Pressure Support Vent Sodium 141 Potassium 4.0 Chloride 107 Carbon Dioxide 29 Anion Gap 5 L BUN 22.3 H Creatinine 0.6 Est GFR (CKD-EPI)AfAm 108.52 Est GFR (CKD-EPI)NonAf 93.63 POC Glucometer Random Glucose 208 H Hemoglobin A1c % Lactic Acid 1.5 Calcium 8.7 Phosphorus Magnesium Total Bilirubin 0.7 AST 20 ALT 34 Alkaline Phosphatase 122 H Creatine Kinase Troponin I B-Natriuretic Peptide 4864.3 H Total Protein 7.0 Albumin 3.4 Urine Color Yellow Urine Appearance Clear Urine pH 5.0 Ur Specific [place] 1.018 Urine Protein 1+ H Urine Glucose (UA) Trace Urine Ketones Negative Urine Blood 2+ H Urine Nitrite Positive H Urine Bilirubin Negative Urine Urobilinogen 1.0 Ur Leukocyte Esterase 1+ H Urine WBC (Auto) 15 Urine RBC (Auto) 2 Urine Casts (Auto) 1 U Epithel Cells (Auto) 0.9 Urine Bacteria (Auto) 19.3 05/22/19 05/22/19 05/23/19 20:22 23:20 05:38 WBC 8.8 RBC 4.19 Hgb 13.1 Hct 39.4 MCV 94.0 MCH 31.2 MCHC 33.1 RDW 14.2 Plt Count 223 MPV 10.0 Absolute Neuts (auto) 6.9 Neutrophils % 78.7 Lymphocytes % 10.6 D Monocytes % 9.5 Eosinophils % 0.6 Basophils % 0.6 Nucleated RBC % 0 PT with INR 12.90 INR 1.09 PTT (Actin FS) 36.0 D-Dimer Puncture Site Left radial ABG pH 7.49 H ABG pCO2 at Pt Temp 36.8 ABG pO2 at Pt Temp 485 H ABG HCO3 28.0 H ABG O2 Sat (Measured) 99.9 H ABG O2 Content 20.1 ABG Base Excess 4.9 H Conner Test Positive O2 Delivery Device Bipap Oxygen Flow Rate 100% Vent Mode S/t Vent Rate 14 Pressure Support Vent 12/5 Sodium Potassium Chloride Carbon Dioxide Anion Gap BUN Creatinine Est GFR (CKD-EPI)AfAm Est GFR (CKD-EPI)NonAf POC Glucometer Random Glucose Hemoglobin A1c % Lactic Acid Calcium Phosphorus Magnesium Total Bilirubin AST ALT Alkaline Phosphatase Creatine Kinase Troponin I B-Natriuretic Peptide Total Protein Albumin Urine Color Urine Appearance Urine pH Ur Specific [place] Urine Protein Urine Glucose (UA) Urine Ketones Urine Blood Urine Nitrite Urine Bilirubin Urine Urobilinogen Ur Leukocyte Esterase Urine WBC (Auto) Urine RBC (Auto) Urine Casts (Auto) U Epithel Cells (Auto) Urine Bacteria (Auto) 05/23/19 05/23/19 05/23/19 05:38 05:38 05:38 WBC RBC Hgb Hct MCV MCH MCHC RDW Plt Count MPV Absolute Neuts (auto) Neutrophils % Lymphocytes % Monocytes % Eosinophils % Basophils % Nucleated RBC % PT with INR 15.00 H INR 1.27 H PTT (Actin FS) 38.5 H D-Dimer Puncture Site ABG pH ABG pCO2 at Pt Temp ABG pO2 at Pt Temp ABG HCO3 ABG O2 Sat (Measured) ABG O2 Content ABG Base Excess Conner Test O2 Delivery Device Oxygen Flow Rate Vent Mode Vent Rate Pressure Support Vent Sodium 140 Potassium 3.4 L Chloride 102 Carbon Dioxide 31 Anion Gap 7 L BUN 17.2 Creatinine 0.5 L Est GFR (CKD-EPI)AfAm 116.97 Est GFR (CKD-EPI)NonAf 100.92 POC Glucometer Random Glucose 110 H Hemoglobin A1c % 6.6 H Lactic Acid Calcium 8.4 L Phosphorus 4.0 Magnesium 1.8 Total Bilirubin 1.0 AST 14 L ALT 30 Alkaline Phosphatase 110 Creatine Kinase Troponin I B-Natriuretic Peptide Total Protein 6.4 Albumin 3.0 L Urine Color Urine Appearance Urine pH Ur Specific [place] Urine Protein Urine Glucose (UA) Urine Ketones Urine Blood Urine Nitrite Urine Bilirubin Urine Urobilinogen Ur Leukocyte Esterase Urine WBC (Auto) Urine RBC (Auto) Urine Casts (Auto) U Epithel Cells (Auto) Urine Bacteria (Auto) 05/23/19 11:13 WBC RBC Hgb Hct MCV MCH MCHC RDW Plt Count MPV Absolute Neuts (auto) Neutrophils % Lymphocytes % Monocytes % Eosinophils % Basophils % Nucleated RBC % PT with INR INR PTT (Actin FS) D-Dimer Puncture Site ABG pH ABG pCO2 at Pt Temp ABG pO2 at Pt Temp ABG HCO3 ABG O2 Sat (Measured) ABG O2 Content ABG Base Excess Conner Test O2 Delivery Device Oxygen Flow Rate Vent Mode Vent Rate Pressure Support Vent Sodium Potassium Chloride Carbon Dioxide Anion Gap BUN Creatinine Est GFR (CKD-EPI)AfAm Est GFR (CKD-EPI)NonAf POC Glucometer 165 Random Glucose Hemoglobin A1c % Lactic Acid Calcium Phosphorus Magnesium Total Bilirubin AST ALT Alkaline Phosphatase Creatine Kinase Troponin I B-Natriuretic Peptide Total Protein Albumin Urine Color Urine Appearance Urine pH Ur Specific [place] Urine Protein Urine Glucose (UA) Urine Ketones Urine Blood Urine Nitrite Urine Bilirubin Urine Urobilinogen Ur Leukocyte Esterase Urine WBC (Auto) Urine RBC (Auto) Urine Casts (Auto) U Epithel Cells (Auto) Urine Bacteria (Auto) Active Medications Generic Name Dose Route Start Last Admin Trade Name Freq PRN Reason Stop Dose Admin Albuterol Sulfate 1 amp 05/22/19 23:32 Ventolin 0.083% Nebulizer Soln - NEB Q1H PRN SHORT OF BREATH/WHEEZING Apixaban 5 mg 05/23/19 10:30 05/23/19 10:34 Eliquis - PO 5 mg BID YOON Administration Chlorhexidine Gluconate 1 applic 05/23/19 22:00 Hibiclens For Decolonization - TP HS YOON Furosemide 40 mg 05/23/19 10:30 05/23/19 10:27 Lasix Injection - IVPUSH 40 mg BIDLASIX YOON Administration Ceftriaxone Sodium 1 gm/ 50 mls @ 100 mls/hr 05/23/19 10:00 05/23/19 10:28 Dextrose IVPB 100 mls/hr DAILY YOON Administration Protocol Insulin Aspart 1 vial 05/23/19 07:00 05/23/19 11:15 Novolog Vial Sliding Scale - SQ 2 units ACHS YOON Administration Protocol Lisinopril 5 mg 05/23/19 12:15 05/23/19 12:36 Prinivil PO 5 mg DAILY YOON Administration Metoprolol Tartrate 50 mg 05/22/19 23:30 05/23/19 10:27 Lopressor - PO 50 mg BID YOON Administration Metoprolol Tartrate 5 mg 05/22/19 23:27 Lopressor Injection - IVPUSH Q4H PRN HYPERTENSION Mupirocin 1 applic 05/23/19 10:00 05/23/19 10:30 Bactroban Ointment (For Decolonization) - NS 05/28/19 09:59 1 applic BID YOON Administration ASSESSMENT/PLAN: 83 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 I reviewed the resident's note and discussed the case with the resident. I agree with the resident's findings and plan as documented. SUBJECTIVE: OBJECTIVE: ASSESSMENT AND PLAN:
--- NOTE | 2019-05-23 13:14 | HP ---
DATE OF ADMISSION: 05/22/2019 HISTORY: This is an 83-year-old male known to me for many years diagnosed to have hypertension, diabetes, Parkinson's, paroxysmal atrial fibrillation, noncompliant on Eliquis. Came to the emergency room with complaints of short of breath and leg swelling 1 week. Also his gait is unsteady. Also has some cough. PHYSICAL EXAMINATION: Vital Signs: Blood pressure is 120/70, pulse 86 irregular, temperature 98. HEENT: Unremarkable. Neck: Supple. No JVD. Lungs: Bibasilar rales present. Heart: S1, S2 normal. No S3, S4. Abdomen: Soft. Extremities: Edema present. Right leg has cellulitis with a small open wound on the anterior aspect of the middle of the leg. Neurologic: Grossly normal. LABORATORY REPORTS: WBC 8.8, hemoglobin 13.1, platelets 223. Chemistry; sodium 140, potassium 3.4, chloride 102, BUN 17. Blood sugar 165, hemoglobin A1C 6.6. BNP high 4864. Troponin is negative. Chest x-ray: Congestion with bibasilar effusions. CT of the head: No PE. IMPRESSION: 1. Congestive heart failure. 2. Atrial fibrillation. 3. Hypertension. 4. Diabetes. PLAN: Admit to ICU. Cardiology consult. Continue his present medications. Lisinopril 5 mg, ceftriaxone 1 g daily, Eliquis 5 mg b.i.d., albuterol sulfate, metoprolol 50 b.i.d., insulin according to his scale, Lasix injection 40 mg IV push daily. We will follow. Devyn [id number]
--- NOTE | 2019-05-23 18:36 | EKG ---
Test Reason : Blood Pressure : / mmHG Vent. Rate : 131 BPM Atrial Rate : 120 BPM P-R Int : 000 ms QRS Dur : 090 ms QT Int : 324 ms P-R-T Axes : 000 065 -25 degrees QTc Int : 478 ms POOR DATA QUALITY, INTERPRETATION MAY BE ADVERSELY AFFECTED ATRIAL FIBRILLATION WITH RAPID VENTRICULAR RESPONSE ANTEROSEPTAL INFARCT (CITED ON OR BEFORE 09-MAR-2008) ABNORMAL ECG WHEN COMPARED WITH ECG OF 18-MAR-2016 10:16, NONSPECIFIC T WAVE ABNORMALITY, WORSE IN INFERIOR LEADS Confirmed by JOHANNE ABBOTT MD ([id number]) on 05/23/2019 6:36:20 PM Referred By: Confirmed By:JOHANNE ABBOTT MD
[2019-05-23] MEDS ORDERED: CHLORHEXIDINE GLUCONATE 4% CLEANSER FOR DECOLONIZATION TP SCH (22:00)
[2019-05-24] MEDS ORDERED: HALOPERIDOL LACTATE 5 MG/ML IM ONE (01:45)
[2019-05-24] MEDS: INSULIN SLIDING SCALE (NOVOLOG) 1 VIAL SQ SCH ×4 (06:48→22:37)
[2019-05-24] MEDS: FUROSEMIDE 40 MG/4 ML INJECTABLE VIAL IVPUSH SCH ×2 (06:50→13:57)
[2019-05-24 07:24] LABS: CALCIUM 8.7 mg/dL (8.5-10.1); CREATININE 0.6 mg/dL (0.55-1.3); POTASSIUM 3.3 mmol/L (3.5-5.1)
--- NOTE | 2019-05-24 09:40 | PN ---
Progress Note, Physician Chief Complaint: Feels OK confused at times History of Present Illness: Admitted with CHF Now in tele - Current Medication List Current Medications: Active Medications Albuterol Sulfate (Ventolin 0.083% Nebulizer Soln -) 1 amp NEB Q1H PRN PRN Reason: SHORT OF BREATH/WHEEZING Apixaban (Eliquis -) 5 mg PO BID [facility] Last Admin: 05/23/19 21:06 Dose: 5 mg Chlorhexidine Gluconate (Hibiclens For Decolonization -) 1 applic TP HS [facility] Last Admin: 05/23/19 21:09 Dose: Not Given Furosemide (Lasix Injection -) 40 mg IVPUSH BIDLASIX [facility] Last Admin: 05/24/19 06:50 Dose: 40 mg Ceftriaxone Sodium 1 gm/ (Dextrose) 50 mls @ 100 mls/hr IVPB DAILY [facility]; Protocol Last Admin: 05/23/19 10:28 Dose: 100 mls/hr Insulin Aspart (Novolog Vial Sliding Scale -) 1 vial SQ ACHS [facility]; Protocol Last Admin: 05/24/19 06:48 Dose: Not Given Lisinopril (Prinivil) 5 mg PO DAILY [facility] Last Admin: 05/23/19 12:36 Dose: 5 mg Metoprolol Tartrate (Lopressor -) 50 mg PO BID [facility] Last Admin: 05/23/19 21:06 Dose: 50 mg Metoprolol Tartrate (Lopressor Injection -) 5 mg IVPUSH Q4H PRN PRN Reason: HYPERTENSION Mupirocin (Bactroban Ointment (For Decolonization) -) 1 applic NS BID [facility] Stop: 05/28/19 09:59 Last Admin: 05/23/19 21:00 Dose: Not Given - Objective Vital Signs: Vital Signs Temperature 97.5 F L 05/24/19 09:00 Pulse Rate 106 H 05/24/19 09:00 Respiratory Rate 18 05/24/19 09:00 Blood Pressure 104/60 05/24/19 09:00 O2 Sat by Pulse Oximetry (%) 95 05/24/19 08:11 Constitutional: Yes: No Distress Eyes: Yes: WNL HENT: Yes: WNL Neck: Yes: WNL Cardiovascular: Yes: Pulse Irregular Respiratory: Yes: WNL Gastrointestinal: Yes: Normal Bowel Sounds Genitourinary: Yes: WNL Edema: LLE: 1+, RLE: 1+ Wound/Incision: Yes: Other (leg ulcer dry) Labs: CBC, BMP 05/23/19 05:38 05/24/19 06:00 INR, PTT INR 1.27 (0.83-1.09) H 05/23/19 05:38 Assessment/Plan Kcl supplements ordered
[2019-05-24] MEDS ORDERED: DEXTROSE 5%-WATER - 50 ML IVPB ONE ×2 (09:43→10:26)
[2019-05-24] MEDS ORDERED: cefTRIAXone SODIUM 1 GM VIAL ONE ×2 (09:43→10:26)
[2019-05-24] MEDS: MUPIROCIN 2% TOPICAL OINTMENT FOR DECOLONIZATION NS SCH (10:10)
[2019-05-24] MEDS: METOPROLOL TARTRATE 50 MG TABLET (FP) PO SCH ×3 (10:10→22:37)
[2019-05-24] MEDS: APIXABAN 5 MG TABLET PO SCH ×2 (10:10→22:37)
[2019-05-24] MEDS: POTASSIUM CHLORIDE ORAL LIQUID 20 MEQ/15 ML PO SCH ×2 (10:11→22:37)
[2019-05-24] MEDS: LISINOPRIL 5 MG TABLET (FP) PO SCH (10:11)
[2019-05-24] MEDS: CEFTRIAXONE 1 GM in DEXTROSE 5%-WATER - 50 ML IVPB SCH (10:12)
--- NOTE | 2019-05-24 10:12 | PN ---
Progress Note, Physician History of Present Illness: Dyspnea, cough, wheeze and LE edema improving with diuresis. Rapid afib on telemetry. - Current Medication List Current Medications: Active Medications Albuterol Sulfate (Ventolin 0.083% Nebulizer Soln -) 1 amp NEB Q1H PRN PRN Reason: SHORT OF BREATH/WHEEZING Apixaban (Eliquis -) 5 mg PO BID [facility] Last Admin: 05/23/19 21:06 Dose: 5 mg Chlorhexidine Gluconate (Hibiclens For Decolonization -) 1 applic TP HS [facility] Last Admin: 05/23/19 21:09 Dose: Not Given Furosemide (Lasix Injection -) 40 mg IVPUSH BIDLASIX [facility] Last Admin: 05/24/19 06:50 Dose: 40 mg Ceftriaxone Sodium 1 gm/ (Dextrose) 50 mls @ 100 mls/hr IVPB DAILY [facility]; Protocol Last Admin: 05/23/19 10:28 Dose: 100 mls/hr Insulin Aspart (Novolog Vial Sliding Scale -) 1 vial SQ ACHS [facility]; Protocol Last Admin: 05/24/19 06:48 Dose: Not Given Lisinopril (Prinivil) 5 mg PO DAILY [facility] Last Admin: 05/23/19 12:36 Dose: 5 mg Metoprolol Tartrate (Lopressor -) 50 mg PO BID [facility] Last Admin: 05/23/19 21:06 Dose: 50 mg Metoprolol Tartrate (Lopressor Injection -) 5 mg IVPUSH Q4H PRN PRN Reason: HYPERTENSION Mupirocin (Bactroban Ointment (For Decolonization) -) 1 applic NS BID [facility] Stop: 05/28/19 09:59 Last Admin: 05/23/19 21:00 Dose: Not Given Potassium Chloride (Potassium Chloride Oral Liquid) 20 meq PO BID [facility] - Objective Vital Signs: Vital Signs Temperature 97.5 F L 05/24/19 09:00 Pulse Rate 106 H 05/24/19 09:00 Respiratory Rate 18 05/24/19 09:00 Blood Pressure 104/60 05/24/19 09:00 O2 Sat by Pulse Oximetry (%) 95 05/24/19 08:11 Constitutional: Yes: No Distress, Calm Neck: Yes: Supple Cardiovascular: Yes: Tachycardia, Pulse Irregular Respiratory: Yes: Regular, Diminished, On BiPap Gastrointestinal: Yes: Normal Bowel Sounds, Soft Edema: Yes Edema: LLE: 1+, RLE: 1+ Labs: CBC, BMP 05/23/19 05:38 05/24/19 06:00 INR, PTT INR 1.27 (0.83-1.09) H 05/23/19 05:38 - ....Imaging EKG: Report Reviewed (Tele: Rapid afib) Problem List - Problems (1) Afib Code(s): I48.91 - UNSPECIFIED ATRIAL FIBRILLATION Qualifiers: Atrial fibrillation type: unspecified persistent Qualified Code(s): I48.19 - Other persistent atrial fibrillation; I48.1 - Persistent atrial fibrillation (2) Diabetes mellitus Code(s): E11.9 - TYPE 2 DIABETES MELLITUS WITHOUT COMPLICATIONS Qualifiers: Diabetes mellitus type: type 2 (3) Dyspnea Code(s): R06.00 - DYSPNEA, UNSPECIFIED (4) Hypertension Code(s): I10 - ESSENTIAL (PRIMARY) HYPERTENSION Qualifiers: Hypertension type: essential hypertension Qualified Code(s): I10 - Essential (primary) hypertension (5) CHF (congestive heart failure) Code(s): I50.9 - HEART FAILURE, UNSPECIFIED Qualifiers: Heart failure type: diastolic Heart failure chronicity: acute on chronic Qualified Code(s): I50.33 - Acute on chronic diastolic (congestive) heart failure Assessment/Plan 03/15/2016 Echo: Normal LV size and low normal LV fxn, normal RV size and fxn, mild LAE, mild MR, tr TR, AR 1. Acute on chronic diastolic heart failure with bilateral pleural effusions 2. Persistent atrial fibrillation with RVR [id number] noncompliant with Eliquis 3. HTN heart disease with HTN urgency 4. Type 2 DM 5. Parkinson's Disease 6. UTI 7. Prostate Ca s/p hormone therapy tx 8. Toxic metabolic encephelopathy PLAN: 1. IV diuresis with monitor diuretic response, renal fxn and electrolytes, O2 to keep SpO2 >90%, replete K 2. Increase Lopressor to 50 mg TID, Lopressor 5mg IV PRN and lisinopril 5 qd with uptitration as tolerated. Monitor rate response. 3. Continue Eliquis 5 mg BID given elevated risk score, emphasized importance of medication and diet compliance 4. Empiric abx per C&S 5. F/u echocardiogram to assess ventricular and valve fxn
--- NOTE | 2019-05-24 10:16 | PN ---
Progress Note, Physician History of Present Illness: PULMONARY ALERT,FEELING BETTER,LESS DYSPNEIC - Current Medication List Current Medications: Active Medications Albuterol Sulfate (Ventolin 0.083% Nebulizer Soln -) 1 amp NEB Q1H PRN PRN Reason: SHORT OF BREATH/WHEEZING Apixaban (Eliquis -) 5 mg PO BID [facility] Last Admin: 05/24/19 10:10 Dose: 5 mg Chlorhexidine Gluconate (Hibiclens For Decolonization -) 1 applic TP HS [facility] Last Admin: 05/23/19 21:09 Dose: Not Given Furosemide (Lasix Injection -) 40 mg IVPUSH BIDLASIX [facility] Last Admin: 05/24/19 06:50 Dose: 40 mg Ceftriaxone Sodium 1 gm/ (Dextrose) 50 mls @ 100 mls/hr IVPB DAILY [facility]; Protocol Last Admin: 05/24/19 10:12 Dose: 100 mls/hr Insulin Aspart (Novolog Vial Sliding Scale -) 1 vial SQ ACHS [facility]; Protocol Last Admin: 05/24/19 06:48 Dose: Not Given Lisinopril (Prinivil) 5 mg PO DAILY [facility] Last Admin: 05/24/19 10:11 Dose: 5 mg Metoprolol Tartrate (Lopressor -) 50 mg PO BID [facility] Last Admin: 05/24/19 10:10 Dose: 50 mg Metoprolol Tartrate (Lopressor Injection -) 5 mg IVPUSH Q4H PRN PRN Reason: HYPERTENSION Mupirocin (Bactroban Ointment (For Decolonization) -) 1 applic NS BID [facility] Stop: 05/28/19 09:59 Last Admin: 05/24/19 10:10 Dose: Not Given Potassium Chloride (Potassium Chloride Oral Liquid) 20 meq PO BID [facility] Last Admin: 05/24/19 10:11 Dose: 20 meq - Objective Vital Signs: Vital Signs Temperature 97.5 F L 05/24/19 09:00 Pulse Rate 106 H 05/24/19 09:00 Respiratory Rate 18 05/24/19 09:00 Blood Pressure 104/60 05/24/19 09:00 O2 Sat by Pulse Oximetry (%) 95 05/24/19 08:11 Constitutional: Yes: Calm, Thin Eyes: Yes: WNL HENT: Yes: WNL Neck: Yes: WNL Cardiovascular: Yes: Pulse Irregular, S1, S2 Respiratory: Yes: Rales (bibasailr rales) Gastrointestinal: Yes: Normal Bowel Sounds, Soft Extremities: Yes: WNL Edema: Yes Labs: CBC, BMP 05/24/19 06:00 Problem List - Problems (1) Hypertensive urgency Code(s): I16.0 - HYPERTENSIVE URGENCY (2) Afib Code(s): I48.91 - UNSPECIFIED ATRIAL FIBRILLATION Qualifiers: Atrial fibrillation type: unspecified persistent Qualified Code(s): I48.19 - Other persistent atrial fibrillation; I48.1 - Persistent atrial fibrillation (3) CHF (congestive heart failure) Code(s): I50.9 - HEART FAILURE, UNSPECIFIED Qualifiers: Heart failure type: diastolic Heart failure chronicity: acute on chronic Qualified Code(s): I50.33 - Acute on chronic diastolic (congestive) heart failure (4) Diabetes mellitus Code(s): E11.9 - TYPE 2 DIABETES MELLITUS WITHOUT COMPLICATIONS Qualifiers: Diabetes mellitus type: type 2 (5) Hypertension Code(s): I10 - ESSENTIAL (PRIMARY) HYPERTENSION Qualifiers: Hypertension type: essential hypertension Qualified Code(s): I10 - Essential (primary) hypertension Assessment/Plan ASSESSMENT AND PLAN: Hypertensive Urgency improved Decompensated CHF improving Atrial Fibrillation UTI HTN DM Prostate Ca - continue lasix - monitor urine output, creatinine - daily weights - O2 to keep SpO2 >90% - rate control - continue anticoagulation - replete lytes - continue antibiotics - PO as tolerated DR ROWE
--- NOTE | 2019-05-24 13:34 | EKG ---
Test Reason : Blood Pressure : / mmHG Vent. 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 RATE HAS DECREASED Confirmed by JEANNETTE HERNANDEZ MD ([id number]) on 05/24/2019 1:34:39 PM Referred By: Confirmed By:JEANNETTE HERNANDEZ MD
--- NOTE | 2019-05-24 15:57 | ECHO ---
Name: ABBI LOTT Exam:Adult Echocardiogram Study Date: 05/24/2019 01:18 PM Age: 83 yrs Reason For Study: chf Height: 68 in Weight: 175 lb BSA: 1.9 m2 MMode/2D Measurements & Calculations RVDd: 3.1 cm Ao root diam: 3.7 cm IVSd: 1.0 cm LA dimension: 3.8 cm LVIDd: 5.3 cm ACS: 0.68 cm LVIDs: 4.2 cm LVPWd: 0.89 cm IVSs: 1.1 cm LVPWs: 1.2 cm EDV(Teich): 133.1 ml ESV(Teich): 76.5 ml LVOT diam: 2.1 cm Doppler Measurements & Calculations MV E max bg: 117.5 cm/sec Ao V2 max: 250.3 cm/sec Ao max P.1 mmHg Ao V2 mean: 186.1 cm/sec Ao mean P.9 mmHg Ao V2 VTI: 52.2 cm TESSY(I,D): 0.92 cm2 AI P1/2t: 445.5 msec TESSY(V,D): 1.1 cm2 AI max bg: 326.9 cm/sec LV V1 max P.6 mmHg AI max P.7 mmHg LV V1 mean P.4 mmHg AI dec slope: 214.9 cm/sec2 LV V1 max: 79.2 cm/sec LV V1 mean: 54.1 cm/sec LV V1 VTI: 13.5 cm MR max bg: 517.8 cm/sec SV(LVOT): 48.1 ml MR max P.3 mmHg TR max bg: 277.4 cm/sec PI end-d bg: 100.4 cm/sec TR max P.2 mmHg Procedure A complete two-dimensional transthoracic echocardiogram was performed (2D, M-mode, Doppler and color flow Doppler). Left Ventricle The left ventricle is normal in size. Left ventricular systolic function is moderate to severely redu dayana. Ejection Fraction = 30-35%. There is moderate to severe global hypokinesis of the left ventricle. Right Ventricle The right ventricle is normal size. The right ventricular systolic function is normal. Atria The left atrium is mildly dilated. Right atrial size is normal. Mitral Valve There is mild mitral valve thickening. There is mild mitral annular calcification. There is moderate to severe mitral regurgitation. Tricuspid Valve The tricuspid valve is normal in structure and function. There is moderate to severe tricuspid regurg itation. Pulmonary artery systolic pressure is at least 39 mmHg if RA pressure is assumed 3 mmHg. Aortic Valve There is moderate aortic valve thickening. Mild to moderate valvular aortic stenosis. The calculated aortic valve area using the continuity equation is 1.0 cm2. Aortic mean pressure gradient= 16 mmHg. DI (dime nsionless index) is estimated at 0.27. Mild aortic regurgitation. Pulmonic Valve The pulmonic valve is not well visualized. Great Vessels The aortic root is normal size. Pericardium/Pleura Trivial pericardial effusion not hemodynamically significant. There is a pleural effusion present. Interpretation Summary The left ventricle is normal in size. Left ventricular systolic function is moderate to severely reduced. There is moderate to severe global hypokinesis of the left ventricle. Ejection Fraction = 30-35%. The right ventricular systolic function is normal. The left atrium is mildly dilated. Right atrial size is normal. There is mild mitral valve thickening. There is mild mitral annular calcification. There is moderate to severe mitral regurgitation. There is moderate to severe tricuspid regurgitation. Pulmonary artery systolic pressure is at least 39 mmHg if RA pressure is assumed 3 mmHg There is moderate aortic valve thickening. Mild to moderate valvular aortic stenosis. The calculated aortic valve area using the continuity equation is 1.0 cm2. Aortic mean pressure gradient= 16 mmHg DI (dimensionless index) is estimated at 0.27 Mild aortic regurgitation. Trivial pericardial effusion not hemodynamically significant There is a pleural effusion present. Michael Cho MD 05/24/2019 03:56 PM
[2019-05-24] MEDS ORDERED: ALBUTEROL SO4 0.083% IH SOL 2.5 MG/3 ML VIAL.NEB. NEB PRN (19:32)
[2019-05-24] MEDS ORDERED: METOPROLOL TARTRATE 5 MG/5 ML VIAL IVPUSH PRN (19:32)
[2019-05-24] MEDS ORDERED: CHLORHEXIDINE GLUCONATE 4% CLEANSER FOR DECOLONIZATION TP SCH (22:00)
[2019-05-24] MEDS ORDERED: MUPIROCIN 2% TOPICAL OINTMENT FOR DECOLONIZATION NS SCH (22:00)
[2019-05-25] MEDS ORDERED: HALOPERIDOL LACTATE 5 MG/ML IM ONE (00:30)
[2019-05-25] MEDS: INSULIN SLIDING SCALE (NOVOLOG) 1 VIAL SQ SCH ×4 (06:29→22:20)
[2019-05-25] MEDS: METOPROLOL TARTRATE 50 MG TABLET (FP) PO SCH (06:45)
[2019-05-25] MEDS: FUROSEMIDE 40 MG/4 ML INJECTABLE VIAL IVPUSH SCH ×2 (06:45→19:02)
--- NOTE | 2019-05-25 09:21 | PN ---
Progress Note, Physician Chief Complaint: Feels better History of Present Illness: Echo LVF EF 30-35% - Current Medication List Current Medications: Active Medications Albuterol Sulfate (Ventolin 0.083% Nebulizer Soln -) 1 amp NEB Q1H PRN PRN Reason: SHORT OF BREATH/WHEEZING Apixaban (Eliquis -) 5 mg PO BID [facility] Last Admin: 05/24/19 22:37 Dose: 5 mg Chlorhexidine Gluconate (Hibiclens For Decolonization -) 1 applic TP HS [facility] Furosemide (Lasix Injection -) 40 mg IVPUSH BIDLASIX [facility] Last Admin: 05/25/19 06:45 Dose: 40 mg Ceftriaxone Sodium 1 gm/ (Dextrose) 50 mls @ 100 mls/hr IVPB DAILY [facility]; Protocol Insulin Aspart (Novolog Vial Sliding Scale -) 1 vial SQ ACHS [facility]; Protocol Last Admin: 05/25/19 06:29 Dose: Not Given Lisinopril (Prinivil) 5 mg PO DAILY [facility] Last Admin: 05/24/19 10:11 Dose: 5 mg Metoprolol Tartrate (Lopressor -) 50 mg PO TID [facility] Last Admin: 05/25/19 06:45 Dose: 50 mg Metoprolol Tartrate (Lopressor Injection -) 5 mg IVPUSH Q4H PRN PRN Reason: HYPERTENSION Mupirocin (Bactroban Ointment (For Decolonization) -) 1 applic NS BID [facility] Stop: 05/28/19 09:59 Potassium Chloride (Potassium Chloride Oral Liquid) 20 meq PO BID [facility] Last Admin: 05/24/19 22:37 Dose: 20 meq - Objective Vital Signs: Vital Signs Temperature 97.5 F L 05/25/19 06:00 Pulse Rate 104 H 05/25/19 06:00 Respiratory Rate 20 05/25/19 06:00 Blood Pressure 154/86 05/25/19 06:00 O2 Sat by Pulse Oximetry (%) 97 05/24/19 21:00 Constitutional: Yes: Calm Eyes: Yes: WNL HENT: Yes: WNL Neck: Yes: WNL Cardiovascular: Yes: Pulse Irregular Respiratory: Yes: WNL Gastrointestinal: Yes: WNL ...Rectal Exam: Yes: Deferred Genitourinary: Yes: Other (Will DC kim) Neurological: Yes: Alert Psychiatric: Yes: Alert Labs: CBC, BMP 05/23/19 05:38 05/24/19 06:00 INR, PTT INR 1.27 (0.83-1.09) H 05/23/19 05:38
--- NOTE | 2019-05-25 09:31 | PN ---
Progress Note, Physician History of Present Illness: pulmonary alert,comfortable,,less dyspneic on nasal cannula - Current Medication List Current Medications: Active Medications Albuterol Sulfate (Ventolin 0.083% Nebulizer Soln -) 1 amp NEB Q1H PRN PRN Reason: SHORT OF BREATH/WHEEZING Apixaban (Eliquis -) 5 mg PO BID [facility] Last Admin: 05/24/19 22:37 Dose: 5 mg Chlorhexidine Gluconate (Hibiclens For Decolonization -) 1 applic TP HS [facility] Furosemide (Lasix Injection -) 40 mg IVPUSH BIDLASIX [facility] Last Admin: 05/25/19 06:45 Dose: 40 mg Ceftriaxone Sodium 1 gm/ (Dextrose) 50 mls @ 100 mls/hr IVPB DAILY [facility]; Protocol Insulin Aspart (Novolog Vial Sliding Scale -) 1 vial SQ ACHS [facility]; Protocol Last Admin: 05/25/19 06:29 Dose: Not Given Lisinopril (Prinivil) 5 mg PO DAILY [facility] Last Admin: 05/24/19 10:11 Dose: 5 mg Metoprolol Tartrate (Lopressor -) 50 mg PO TID [facility] Last Admin: 05/25/19 06:45 Dose: 50 mg Metoprolol Tartrate (Lopressor Injection -) 5 mg IVPUSH Q4H PRN PRN Reason: HYPERTENSION Mupirocin (Bactroban Ointment (For Decolonization) -) 1 applic NS BID [facility] Stop: 05/28/19 09:59 Potassium Chloride (Potassium Chloride Oral Liquid) 20 meq PO BID [facility] Last Admin: 05/24/19 22:37 Dose: 20 meq - Objective Vital Signs: Vital Signs Temperature 97.5 F L 05/25/19 06:00 Pulse Rate 104 H 05/25/19 06:00 Respiratory Rate 20 05/25/19 06:00 Blood Pressure 154/86 05/25/19 06:00 O2 Sat by Pulse Oximetry (%) 97 05/24/19 21:00 Constitutional: Yes: Well Nourished, Calm Eyes: Yes: WNL HENT: Yes: WNL Neck: Yes: WNL Cardiovascular: Yes: Pulse Irregular, S1, S2 Respiratory: Yes: Rales (bibasilar rales) Gastrointestinal: Yes: Normal Bowel Sounds, Soft Extremities: Yes: WNL Edema: Yes Labs: CBC, BMP Problem List - Problems (1) Hypertensive urgency Code(s): I16.0 - HYPERTENSIVE URGENCY (2) Afib Code(s): I48.91 - UNSPECIFIED ATRIAL FIBRILLATION Qualifiers: Atrial fibrillation type: unspecified persistent Qualified Code(s): I48.19 - Other persistent atrial fibrillation; I48.1 - Persistent atrial fibrillation (3) CHF (congestive heart failure) Code(s): I50.9 - HEART FAILURE, UNSPECIFIED Qualifiers: Heart failure type: diastolic Heart failure chronicity: acute on chronic Qualified Code(s): I50.33 - Acute on chronic diastolic (congestive) heart failure (4) Diabetes mellitus Code(s): E11.9 - TYPE 2 DIABETES MELLITUS WITHOUT COMPLICATIONS Qualifiers: Diabetes mellitus type: type 2 (5) Hypertension Code(s): I10 - ESSENTIAL (PRIMARY) HYPERTENSION Qualifiers: Hypertension type: essential hypertension Qualified Code(s): I10 - Essential (primary) hypertension Assessment/Plan ASSESSMENT AND PLAN: Hypertensive Urgency improved Decompensated CHF improving Atrial Fibrillation UTI HTN DM Prostate Ca - lasix - monitor urine output, creatinine - daily weights - O2 to keep SpO2 >90% - rate control - anticoagulation - replete lytes - continue antibiotics DR ROWE
[2019-05-25] MEDS ORDERED: cefTRIAXone SODIUM 1 GM VIAL ONE (10:32)
[2019-05-25] MEDS ORDERED: DEXTROSE 5%-WATER - 50 ML IVPB ONE (10:32)
--- NOTE | 2019-05-25 10:46 | PN ---
Progress Note, Physician History of Present Illness: Dyspnea, cough, wheeze and LE edema improving with diuresis. Afib with improved rate-control. - Current Medication List Current Medications: Active Medications Albuterol Sulfate (Ventolin 0.083% Nebulizer Soln -) 1 amp NEB Q1H PRN PRN Reason: SHORT OF BREATH/WHEEZING Apixaban (Eliquis -) 5 mg PO BID [facility] Last Admin: 05/24/19 22:37 Dose: 5 mg Chlorhexidine Gluconate (Hibiclens For Decolonization -) 1 applic TP HS [facility] Furosemide (Lasix Injection -) 40 mg IVPUSH BIDLASIX [facility] Last Admin: 05/25/19 06:45 Dose: 40 mg Ceftriaxone Sodium 1 gm/ (Dextrose) 50 mls @ 100 mls/hr IVPB DAILY [facility]; Protocol Insulin Aspart (Novolog Vial Sliding Scale -) 1 vial SQ ACHS [facility]; Protocol Last Admin: 05/25/19 06:29 Dose: Not Given Lisinopril (Prinivil) 5 mg PO DAILY [facility] Last Admin: 05/24/19 10:11 Dose: 5 mg Metoprolol Tartrate (Lopressor -) 50 mg PO TID [facility] Last Admin: 05/25/19 06:45 Dose: 50 mg Metoprolol Tartrate (Lopressor Injection -) 5 mg IVPUSH Q4H PRN PRN Reason: HYPERTENSION Mupirocin (Bactroban Ointment (For Decolonization) -) 1 applic NS BID [facility] Stop: 05/28/19 09:59 Potassium Chloride (Potassium Chloride Oral Liquid) 20 meq PO BID [facility] Last Admin: 05/24/19 22:37 Dose: 20 meq - Objective Vital Signs: Vital Signs Temperature 97.5 F L 05/25/19 06:00 Pulse Rate 104 H 05/25/19 06:00 Respiratory Rate 20 05/25/19 06:00 Blood Pressure 154/86 05/25/19 06:00 O2 Sat by Pulse Oximetry (%) 97 05/24/19 21:00 Constitutional: Yes: No Distress, Calm, Thin Neck: Yes: Supple Cardiovascular: Yes: Tachycardia, Pulse Irregular Respiratory: Yes: Regular, Diminished, On Nasal O2 Gastrointestinal: Yes: Normal Bowel Sounds, Soft Edema: Yes Edema: LLE: 1+, RLE: 1+ Labs: CBC, BMP 05/23/19 05:38 05/24/19 06:00 INR, PTT INR 1.27 (0.83-1.09) H 05/23/19 05:38 - ....Imaging EKG: Report Reviewed (Tele: Afib with improved rate-control) Problem List - Problems (1) Afib Code(s): I48.91 - UNSPECIFIED ATRIAL FIBRILLATION Qualifiers: Atrial fibrillation type: unspecified persistent Qualified Code(s): I48.19 - Other persistent atrial fibrillation; I48.1 - Persistent atrial fibrillation (2) Diabetes mellitus Code(s): E11.9 - TYPE 2 DIABETES MELLITUS WITHOUT COMPLICATIONS Qualifiers: Diabetes mellitus type: type 2 (3) Dyspnea Code(s): R06.00 - DYSPNEA, UNSPECIFIED (4) Hypertension Code(s): I10 - ESSENTIAL (PRIMARY) HYPERTENSION Qualifiers: Hypertension type: essential hypertension Qualified Code(s): I10 - Essential (primary) hypertension (5) CHF (congestive heart failure) Code(s): I50.9 - HEART FAILURE, UNSPECIFIED Qualifiers: Heart failure type: combined systolic and diastolic Heart failure chronicity: acute on chronic Qualified Code(s): I50.43 - Acute on chronic combined systolic (congestive) and diastolic (congestive) heart failure Assessment/Plan 05/24/2019 Echo: Normal LV size with mod-severe LVEF 30-35%, normal RV fxn, mild LAE, mod-severe MR, TR, RVSP 39 mmHg, mild-mod MG 16 mmHg, mild AR, pleural effusion, trace pericardial effusions 03/15/2016 Echo: Normal LV size and low normal LV fxn, normal RV size and fxn, mild LAE, mild MR, tr TR, AR 1. Acute on chronic diastolic/systolic heart failure with bilateral pleural effusions 2. Persistent atrial fibrillation with RVR [id number] noncompliant with Eliquis 3. HTN heart disease with HTN urgency improving 4. Type 2 DM 5. Parkinson's Disease 6. UTI 7. Prostate Ca s/p hormone therapy tx 8. Toxic metabolic encephelopathy improving PLAN: 1. IV diuresis with monitor diuretic response, renal fxn and electrolytes, O2 to keep SpO2 >90%, replete K 2. Change Lopressor to Toprol XL 50 bid, Lopressor 5mg IV PRN, monitor rate- response and add Aldactone 25 qd. Hold lisinopril 5 qd for 2 days before starting Entresto bid 3. Continue Eliquis 5 mg BID given elevated risk score, emphasized importance of medication and diet compliance 4. Empiric abx per C&S 5. PT as tolerated
[2019-05-25] MEDS: CEFTRIAXONE 1 GM in DEXTROSE 5%-WATER - 50 ML IVPB SCH (10:53)
[2019-05-25] MEDS: APIXABAN 5 MG TABLET PO SCH ×2 (10:53→21:56)
[2019-05-25] MEDS: POTASSIUM CHLORIDE ORAL LIQUID 20 MEQ/15 ML PO SCH ×2 (10:53→21:56)
[2019-05-25] MEDS: LISINOPRIL 5 MG TABLET (FP) PO SCH (10:53)
[2019-05-25] MEDS: SPIRONOLACTONE 25 MG TABLET (FP) PO SCH (19:02)
[2019-05-26] MEDS: FUROSEMIDE 40 MG/4 ML INJECTABLE VIAL IVPUSH SCH ×2 (05:39→13:14)
[2019-05-26] MEDS: INSULIN SLIDING SCALE (NOVOLOG) 1 VIAL SQ SCH ×4 (06:20→22:55)
[2019-05-26 07:33] LABS: BLOOD UREA NITROGEN 23.3 mg/dL (7-18); CALCIUM 8.6 mg/dL (8.5-10.1); CREATININE 0.6 mg/dL (0.55-1.3); MAGNESIUM 2.1 mg/dL (1.8-2.4); POTASSIUM 3.5 mmol/L (3.5-5.1)
--- NOTE | 2019-05-26 09:52 | PN ---
Progress Note, Physician History of Present Illness: PULMONARY AWAKE,COMFORTABLE,-RESP DISTRESS - Current Medication List Current Medications: Active Medications Albuterol Sulfate (Ventolin 0.083% Nebulizer Soln -) 1 amp NEB Q1H PRN PRN Reason: SHORT OF BREATH/WHEEZING Apixaban (Eliquis -) 5 mg PO BID [facility] Last Admin: 05/25/19 21:56 Dose: 5 mg Chlorhexidine Gluconate (Hibiclens For Decolonization -) 1 applic TP HS [facility] Furosemide (Lasix Injection -) 40 mg IVPUSH BIDLASIX [facility] Last Admin: 05/26/19 05:39 Dose: 40 mg Ceftriaxone Sodium 1 gm/ (Dextrose) 50 mls @ 100 mls/hr IVPB DAILY [facility]; Protocol Last Admin: 05/25/19 10:53 Dose: 100 mls/hr Insulin Aspart (Novolog Vial Sliding Scale -) 1 vial SQ ACHS [facility]; Protocol Last Admin: 05/26/19 06:20 Dose: Not Given Metoprolol Succinate (Toprol Xl -) 50 mg PO BID [facility] Last Admin: 05/25/19 21:55 Dose: 50 mg Metoprolol Tartrate (Lopressor Injection -) 5 mg IVPUSH Q4H PRN PRN Reason: HYPERTENSION Mupirocin (Bactroban Ointment (For Decolonization) -) 1 applic NS BID [facility] Stop: 05/28/19 09:59 Potassium Chloride (Potassium Chloride Oral Liquid) 20 meq PO BID [facility] Last Admin: 05/25/19 21:56 Dose: 20 meq Spironolactone (Aldactone -) 25 mg PO DAILY [facility] Last Admin: 05/25/19 19:02 Dose: 25 mg - Objective Vital Signs: Vital Signs Temperature 97.9 F 05/26/19 05:35 Pulse Rate 102 H 05/26/19 05:35 Respiratory Rate 18 05/26/19 05:35 Blood Pressure 143/82 05/26/19 05:35 O2 Sat by Pulse Oximetry (%) 96 05/25/19 21:06 Constitutional: Yes: Calm, Thin Eyes: Yes: WNL HENT: Yes: WNL Neck: Yes: WNL Cardiovascular: Yes: Pulse Irregular, S1, S2 Respiratory: Yes: Rales (BIBASILAR CRACKLES) Gastrointestinal: Yes: Normal Bowel Sounds, Soft Edema: Yes Labs: CBC, BMP 05/26/19 06:00 INR, PTT Problem List - Problems (1) Hypertensive urgency Code(s): I16.0 - HYPERTENSIVE URGENCY (2) Afib Code(s): I48.91 - UNSPECIFIED ATRIAL FIBRILLATION Qualifiers: Atrial fibrillation type: unspecified persistent Qualified Code(s): I48.19 - Other persistent atrial fibrillation; I48.1 - Persistent atrial fibrillation (3) CHF (congestive heart failure) Code(s): I50.9 - HEART FAILURE, UNSPECIFIED Qualifiers: Heart failure type: combined systolic and diastolic Heart failure chronicity: acute on chronic Qualified Code(s): I50.43 - Acute on chronic combined systolic (congestive) and diastolic (congestive) heart failure (4) Diabetes mellitus Code(s): E11.9 - TYPE 2 DIABETES MELLITUS WITHOUT COMPLICATIONS Qualifiers: Diabetes mellitus type: type 2 (5) Hypertension Code(s): I10 - ESSENTIAL (PRIMARY) HYPERTENSION Qualifiers: Hypertension type: essential hypertension Qualified Code(s): I10 - Essential (primary) hypertension Assessment/Plan ASSESSMENT AND PLAN: Hypertensive Urgency improved Decompensated CHF improving Atrial Fibrillation UTI HTN DM Prostate Ca - lasix - monitor urine output, creatinine - daily weights - O2 to keep SpO2 >90% - rate control - anticoagulation - antibiotics DR ROWE
[2019-05-26] MEDS ORDERED: cefTRIAXone SODIUM 1 GM VIAL ONE (09:54)
[2019-05-26] MEDS ORDERED: DEXTROSE 5%-WATER - 50 ML IVPB ONE (09:54)
[2019-05-26] MEDS: POTASSIUM CHLORIDE ORAL LIQUID 20 MEQ/15 ML PO SCH ×2 (09:58→21:42)
[2019-05-26] MEDS: SPIRONOLACTONE 25 MG TABLET (FP) PO SCH (09:58)
[2019-05-26] MEDS: CEFTRIAXONE 1 GM in DEXTROSE 5%-WATER - 50 ML IVPB SCH (09:58)
[2019-05-26] MEDS: APIXABAN 5 MG TABLET PO SCH ×2 (09:58→21:42)
--- NOTE | 2019-05-26 11:55 | PN ---
Progress Note, Physician Chief Complaint: Feels better History of Present Illness: Pérez out ,can urinate - Current Medication List Current Medications: Active Medications Albuterol Sulfate (Ventolin 0.083% Nebulizer Soln -) 1 amp NEB Q1H PRN PRN Reason: SHORT OF BREATH/WHEEZING Apixaban (Eliquis -) 5 mg PO BID [facility] Last Admin: 05/26/19 09:58 Dose: 5 mg Chlorhexidine Gluconate (Hibiclens For Decolonization -) 1 applic TP HS [facility] Furosemide (Lasix Injection -) 40 mg IVPUSH BIDLASIX [facility] Last Admin: 05/26/19 05:39 Dose: 40 mg Ceftriaxone Sodium 1 gm/ (Dextrose) 50 mls @ 100 mls/hr IVPB DAILY [facility]; Protocol Last Admin: 05/26/19 09:58 Dose: 100 mls/hr Insulin Aspart (Novolog Vial Sliding Scale -) 1 vial SQ ACHS [facility]; Protocol Last Admin: 05/26/19 06:20 Dose: Not Given Metoprolol Succinate (Toprol Xl -) 50 mg PO BID [facility] Last Admin: 05/26/19 09:58 Dose: 50 mg Metoprolol Tartrate (Lopressor Injection -) 5 mg IVPUSH Q4H PRN PRN Reason: HYPERTENSION Mupirocin (Bactroban Ointment (For Decolonization) -) 1 applic NS BID [facility] Stop: 05/28/19 09:59 Potassium Chloride (Potassium Chloride Oral Liquid) 20 meq PO BID [facility] Last Admin: 05/26/19 09:58 Dose: 20 meq Spironolactone (Aldactone -) 25 mg PO DAILY [facility] Last Admin: 05/26/19 09:58 Dose: 25 mg - Objective Vital Signs: Vital Signs Temperature 97.9 F 05/26/19 05:35 Pulse Rate 102 H 05/26/19 05:35 Respiratory Rate 18 05/26/19 05:35 Blood Pressure 143/82 05/26/19 05:35 O2 Sat by Pulse Oximetry (%) 96 05/25/19 21:06 Constitutional: Yes: No Distress Eyes: Yes: WNL HENT: Yes: WNL Neck: Yes: WNL Cardiovascular: Yes: Pulse Irregular Respiratory: Yes: WNL Gastrointestinal: Yes: WNL ...Rectal Exam: Yes: Deferred Genitourinary: Yes: WNL Edema: No Labs: CBC, BMP 05/23/19 05:38 05/26/19 06:00 INR, PTT INR 1.27 (0.83-1.09) H 05/23/19 05:38 Assessment/Plan Start on entoreto
--- NOTE | 2019-05-26 13:33 | PN ---
Progress Note, Physician Chief Complaint: Pt alert, responds to verbal queries; denies chest pain, palpitations. Pt's , son are at bedside. History of Present Illness: 83 year old white male h/o systolic and diastolic LV dysfunction (ECHO 05/2019: mod-severely reduced LVEF; mild-moderate (may be underestimated due to LV dysfunction); moderately severe MR and TR), HTN, DM, Parkinsons Disease, PAF-- noncompliant on Eliquis, who presented to the emergency department with SOB and AMS x 1 week, with increasing shortness of breath on exertion with wheezing. He has been having frequent nighttime awakenings and gait has been unsteady, a nonproductive cough for the past few days. For the past few weeks he has also had increasing b/l LE edema. Noted to have HTN urgency, elevated glucose, and rapid afib, symptoms improving with diuresis and rate-control. - Current Medication List Current Medications: Active Medications Albuterol Sulfate (Ventolin 0.083% Nebulizer Soln -) 1 amp NEB Q1H PRN PRN Reason: SHORT OF BREATH/WHEEZING Apixaban (Eliquis -) 5 mg PO BID [facility] Last Admin: 05/26/19 09:58 Dose: 5 mg Chlorhexidine Gluconate (Hibiclens For Decolonization -) 1 applic TP HS [facility] Furosemide (Lasix Injection -) 40 mg IVPUSH BIDLASIX [facility] Last Admin: 05/26/19 13:14 Dose: 40 mg Ceftriaxone Sodium 1 gm/ (Dextrose) 50 mls @ 100 mls/hr IVPB DAILY [facility]; Protocol Last Admin: 05/26/19 09:58 Dose: 100 mls/hr Insulin Aspart (Novolog Vial Sliding Scale -) 1 vial SQ ACHS [facility]; Protocol Last Admin: 05/26/19 13:14 Dose: 2 units Metoprolol Succinate (Toprol Xl -) 50 mg PO BID [facility] Last Admin: 05/26/19 09:58 Dose: 50 mg Metoprolol Tartrate (Lopressor Injection -) 5 mg IVPUSH Q4H PRN PRN Reason: HYPERTENSION Mupirocin (Bactroban Ointment (For Decolonization) -) 1 applic NS BID [facility] Stop: 05/28/19 09:59 Potassium Chloride (Potassium Chloride Oral Liquid) 20 meq PO BID [facility] Last Admin: 05/26/19 09:58 Dose: 20 meq Sacubitril/Valsartan (Entresto 49 Mg-51 Mg Tablet) 1 tab PO BID [facility] Spironolactone (Aldactone -) 25 mg PO DAILY [facility] Last Admin: 05/26/19 09:58 Dose: 25 mg - Objective Vital Signs: Vital Signs Temperature 97.9 F 05/26/19 10:00 Pulse Rate 93 H 05/26/19 10:00 Respiratory Rate 22 H 05/26/19 10:00 Blood Pressure 115/63 05/26/19 10:00 O2 Sat by Pulse Oximetry (%) 98 05/26/19 09:00 Constitutional: Yes: Thin Eyes: Yes: WNL HENT: Yes: WNL Neck: Yes: Decreased ROM Cardiovascular: Yes: S1 (varies in intensity), S2 Respiratory: Yes: Regular Gastrointestinal: Yes: Soft ...Rectal Exam: Yes: Deferred Genitourinary: Yes: Anuria Breast(s): Yes: WNL Musculoskeletal: Yes: Joint Stiffness, Muscle Weakness Extremities: Yes: Cool Edema: No Peripheral Pulses WNL: Yes Integumentary: Yes: Venous Stasis Changes Neurological: Yes: Alert, Weakness Psychiatric: Yes: Alert Labs: CBC, BMP 05/23/19 05:38 05/26/19 06:00 INR, PTT INR 1.27 (0.83-1.09) H 05/23/19 05:38 Abnormal Lab Results 05/26/19 06:00 BUN 23.3 H Random Glucose 132 H - ....Imaging Chest X-ray: Image Reviewed EKG: Image Reviewed Other: Image Reviewed (telemetry: AF; controlled VR) Problem List - Problems (1) Parkinson disease Code(s): G20 - PARKINSON'S DISEASE (2) Afib Assessment/Plan: on metoprolol ER for HR control. On apixaban for anticoagulation. HR better-controlled. Code(s): I48.91 - UNSPECIFIED ATRIAL FIBRILLATION Qualifiers: Atrial fibrillation type: unspecified persistent Qualified Code(s): I48.19 - Other persistent atrial fibrillation; I48.1 - Persistent atrial fibrillation (3) Diabetes mellitus Assessment/Plan: glucose now better-controlled. Code(s): E11.9 - TYPE 2 DIABETES MELLITUS WITHOUT COMPLICATIONS Qualifiers: Diabetes mellitus type: type 2 (4) Hypertension Code(s): I10 - ESSENTIAL (PRIMARY) HYPERTENSION Qualifiers: Hypertension type: essential hypertension Qualified Code(s): I10 - Essential (primary) hypertension (5) Systolic and diastolic CHF w/reduced LV function, NYHA class 4 Assessment/Plan: Continue Entresto, metoprolol, spironolactone. Improving clinically. F/u CXR; plan to decrease furosemide and change to PO. F/u BUN/Cr, electrolytes (K 3.5; on furosemide 40 mg IV bid; will likely require K supplement until dose of Lasix is able to be reduced); Is and Os; daily weight. Code(s): I50.40 - UNSP COMBINED SYSTOLIC AND DIASTOLIC (CONGESTIVE) HRT FAIL
[2019-05-26] MEDS ORDERED: PT OWN MED DRAWER 7, Y5N ONE (21:40)
[2019-05-26] MEDS: SACUBITRIL/VALSARTAN 49 MG-51 MG TABLET PO SCH (21:42)
[2019-05-27] MEDS: INSULIN SLIDING SCALE (NOVOLOG) 1 VIAL SQ SCH ×4 (06:08→22:16)
[2019-05-27] MEDS: FUROSEMIDE 40 MG/4 ML INJECTABLE VIAL IVPUSH SCH (06:11)
--- NOTE | 2019-05-27 09:03 | PN ---
Progress Note, Physician Chief Complaint: Feels better History of Present Illness: Admitted with CHF Doing better,follow up Xray ordered - Current Medication List Current Medications: Active Medications Albuterol Sulfate (Ventolin 0.083% Nebulizer Soln -) 1 amp NEB Q1H PRN PRN Reason: SHORT OF BREATH/WHEEZING Apixaban (Eliquis -) 5 mg PO BID [facility] Last Admin: 05/26/19 21:42 Dose: 5 mg Furosemide (Lasix Injection -) 40 mg IVPUSH BIDLASIX [facility] Last Admin: 05/27/19 06:11 Dose: 40 mg Ceftriaxone Sodium 1 gm/ (Dextrose) 50 mls @ 100 mls/hr IVPB DAILY [facility]; Protocol Last Admin: 05/26/19 09:58 Dose: 100 mls/hr Insulin Aspart (Novolog Vial Sliding Scale -) 1 vial SQ ACHS [facility]; Protocol Last Admin: 05/27/19 06:08 Dose: Not Given Metoprolol Succinate (Toprol Xl -) 50 mg PO BID [facility] Last Admin: 05/26/19 21:42 Dose: 50 mg Metoprolol Tartrate (Lopressor Injection -) 5 mg IVPUSH Q4H PRN PRN Reason: HYPERTENSION Potassium Chloride (Potassium Chloride Oral Liquid) 20 meq PO BID [facility] Last Admin: 05/26/19 21:42 Dose: 20 meq Sacubitril/Valsartan (Entresto 49 Mg-51 Mg Tablet) 1 tab PO BID [facility] Last Admin: 05/26/19 21:42 Dose: 1 tab Spironolactone (Aldactone -) 25 mg PO DAILY [facility] Last Admin: 05/26/19 09:58 Dose: 25 mg - Objective Vital Signs: Vital Signs Temperature 98.2 F 05/27/19 05:38 Pulse Rate 94 H 05/27/19 05:38 Respiratory Rate 18 05/27/19 05:38 Blood Pressure 133/90 05/27/19 05:38 O2 Sat by Pulse Oximetry (%) 98 05/26/19 20:27 Constitutional: Yes: No Distress Eyes: Yes: WNL HENT: Yes: WNL Neck: Yes: WNL Cardiovascular: Yes: Pulse Irregular Respiratory: Yes: WNL Gastrointestinal: Yes: Normal Bowel Sounds ...Rectal Exam: Yes: Deferred Edema: No Wound/Incision: Yes: Open to air Neurological: Yes: Alert Labs: CBC, BMP 05/23/19 05:38 05/26/19 06:00 INR, PTT INR 1.27 (0.83-1.09) H 05/23/19 05:38 Assessment/Plan Needs SNF Will go to [facility]
[2019-05-27] MEDS ORDERED: DEXTROSE 5%-WATER - 50 ML IVPB ONE (09:15)
[2019-05-27] MEDS ORDERED: cefTRIAXone SODIUM 1 GM VIAL ONE (09:15)
[2019-05-27] MEDS ORDERED: PT OWN MED DRAWER 7, Y5N ONE ×2 (09:24→21:50)
[2019-05-27] MEDS: SPIRONOLACTONE 25 MG TABLET (FP) PO SCH (09:49)
[2019-05-27] MEDS: CEFTRIAXONE 1 GM in DEXTROSE 5%-WATER - 50 ML IVPB SCH (09:49)
[2019-05-27] MEDS: POTASSIUM CHLORIDE ORAL LIQUID 20 MEQ/15 ML PO SCH ×2 (09:49→22:17)
[2019-05-27] MEDS: APIXABAN 5 MG TABLET PO SCH ×2 (09:49→22:16)
[2019-05-27] MEDS: SACUBITRIL/VALSARTAN 49 MG-51 MG TABLET PO SCH ×2 (09:50→22:17)
--- NOTE | 2019-05-27 10:15 | PN ---
Progress Note, Physician History of Present Illness: Dyspnea, cough, wheeze and LE edema improving with diuresis. Afib with improved rate-control. - Current Medication List Current Medications: Active Medications Albuterol Sulfate (Ventolin 0.083% Nebulizer Soln -) 1 amp NEB Q1H PRN PRN Reason: SHORT OF BREATH/WHEEZING Apixaban (Eliquis -) 5 mg PO BID [facility] Last Admin: 05/27/19 09:49 Dose: 5 mg Furosemide (Lasix Injection -) 40 mg IVPUSH BIDLASIX [facility] Last Admin: 05/27/19 06:11 Dose: 40 mg Ceftriaxone Sodium 1 gm/ (Dextrose) 50 mls @ 100 mls/hr IVPB DAILY [facility]; Protocol Last Admin: 05/27/19 09:49 Dose: 100 mls/hr Insulin Aspart (Novolog Vial Sliding Scale -) 1 vial SQ ACHS [facility]; Protocol Last Admin: 05/27/19 06:08 Dose: Not Given Metoprolol Succinate (Toprol Xl -) 50 mg PO BID [facility] Last Admin: 05/27/19 09:49 Dose: 50 mg Metoprolol Tartrate (Lopressor Injection -) 5 mg IVPUSH Q4H PRN PRN Reason: HYPERTENSION Potassium Chloride (Potassium Chloride Oral Liquid) 20 meq PO BID [facility] Last Admin: 05/27/19 09:49 Dose: 20 meq Sacubitril/Valsartan (Entresto 49 Mg-51 Mg Tablet) 1 tab PO BID [facility] Last Admin: 05/27/19 09:50 Dose: 1 tab Spironolactone (Aldactone -) 25 mg PO DAILY [facility] Last Admin: 05/27/19 09:49 Dose: 25 mg - Objective Vital Signs: Vital Signs Temperature 98.2 F 05/27/19 05:38 Pulse Rate 94 H 05/27/19 05:38 Respiratory Rate 18 05/27/19 05:38 Blood Pressure 133/90 05/27/19 05:38 O2 Sat by Pulse Oximetry (%) 98 05/26/19 20:27 Constitutional: Yes: No Distress, Calm, Thin Neck: Yes: Supple Cardiovascular: Yes: Pulse Irregular Respiratory: Yes: Regular, CTA Bilaterally Gastrointestinal: Yes: Normal Bowel Sounds, Soft Edema: No Labs: CBC, BMP 05/23/19 05:38 05/26/19 06:00 INR, PTT INR 1.27 (0.83-1.09) H 05/23/19 05:38 - ....Imaging EKG: Report Reviewed (Tele: Afib occ PVC) Problem List - Problems (1) Afib Code(s): I48.91 - UNSPECIFIED ATRIAL FIBRILLATION Qualifiers: Atrial fibrillation type: unspecified persistent Qualified Code(s): I48.19 - Other persistent atrial fibrillation; I48.1 - Persistent atrial fibrillation (2) Diabetes mellitus Code(s): E11.9 - TYPE 2 DIABETES MELLITUS WITHOUT COMPLICATIONS Qualifiers: Diabetes mellitus type: type 2 (3) Dyspnea Code(s): R06.00 - DYSPNEA, UNSPECIFIED (4) Hypertension Code(s): I10 - ESSENTIAL (PRIMARY) HYPERTENSION Qualifiers: Hypertension type: essential hypertension Qualified Code(s): I10 - Essential (primary) hypertension (5) CHF (congestive heart failure) Code(s): I50.9 - HEART FAILURE, UNSPECIFIED Qualifiers: Heart failure type: combined systolic and diastolic Heart failure chronicity: acute on chronic Qualified Code(s): I50.43 - Acute on chronic combined systolic (congestive) and diastolic (congestive) heart failure Assessment/Plan 05/24/2019 Echo: Normal LV size with mod-severe LVEF 30-35%, normal RV fxn, mild LAE, mod-severe MR, TR, RVSP 39 mmHg, mild-mod MG 16 mmHg, mild AR, pleural effusion, trace pericardial effusions 03/15/2016 Echo: Normal LV size and low normal LV fxn, normal RV size and fxn, mild LAE, mild MR, tr TR, AR 1. Acute on chronic diastolic/systolic heart failure with bilateral pleural effusions 2. Persistent atrial fibrillation with RVR [id number] noncompliant with Eliquis 3. HTN heart disease with HTN urgency improving 4. Type 2 DM 5. Parkinson's Disease 6. UTI 7. Prostate Ca s/p hormone therapy tx 8. Toxic metabolic encephelopathy improving PLAN: 1. Change to oral diuresis with monitor diuretic response, renal fxn and electrolytes, O2 to keep SpO2 >90%, replete K 2. Continue Toprol XL 50 bid, Lopressor 5mg IV PRN, monitor rate-response, increase Aldactone 50 qd, Entresto 49/51 bid 3. Continue Eliquis 5 mg BID given elevated risk score, emphasized importance of medication and diet compliance 4. Empiric abx per C&S 5. PT as tolerated->SNF 6. F/u repeat CXR
--- NOTE | 2019-05-27 10:22 | PN ---
Progress Note (short form) - Note Progress Note: Resting in NAD. No CP or SOB. No acute events overnight. Intake & Output 05/24/19 05/25/19 05/26/19 05/27/19 23:59 23:59 23:59 23:59 Intake Total 250 620 260 100 Output Total 1000 1900 Balance -750 -1280 260 100 Weight 149 lb 4.8 oz Last Vital Signs Temp Pulse Resp BP Pulse Ox 98.2 F 94 H 18 133/90 98 05/27/19 05:38 05/27/19 05:38 05/27/19 05:38 05/27/19 05:38 05/26/19 20:27 Active Medications Albuterol Sulfate (Ventolin 0.083% Nebulizer Soln -) 1 amp NEB Q1H PRN PRN Reason: SHORT OF BREATH/WHEEZING Apixaban (Eliquis -) 5 mg PO BID [facility] Last Admin: 05/27/19 09:49 Dose: 5 mg Furosemide (Lasix Injection -) 40 mg IVPUSH BIDLASIX [facility] Last Admin: 05/27/19 06:11 Dose: 40 mg Ceftriaxone Sodium 1 gm/ (Dextrose) 50 mls @ 100 mls/hr IVPB DAILY [facility]; Protocol Last Admin: 05/27/19 09:49 Dose: 100 mls/hr Insulin Aspart (Novolog Vial Sliding Scale -) 1 vial SQ ACHS [facility]; Protocol Last Admin: 05/27/19 06:08 Dose: Not Given Metoprolol Succinate (Toprol Xl -) 50 mg PO BID [facility] Last Admin: 05/27/19 09:49 Dose: 50 mg Metoprolol Tartrate (Lopressor Injection -) 5 mg IVPUSH Q4H PRN PRN Reason: HYPERTENSION Potassium Chloride (Potassium Chloride Oral Liquid) 20 meq PO BID [facility] Last Admin: 05/27/19 09:49 Dose: 20 meq Sacubitril/Valsartan (Entresto 49 Mg-51 Mg Tablet) 1 tab PO BID [facility] Last Admin: 05/27/19 09:50 Dose: 1 tab Spironolactone (Aldactone -) 25 mg PO DAILY [facility] Last Admin: 05/27/19 09:49 Dose: 25 mg Constitutional: Yes: Calm, Thin Eyes: Yes: WNL HENT: Yes: WNL Neck: Yes: WNL Cardiovascular: Yes: Pulse Irregular, S1, S2 Respiratory: Yes: Bibasilar Rales Gastrointestinal: Yes: Normal Bowel Sounds, Soft Edema: Yes Labs: Laboratory Results - last 24 hr 05/26/19 05/26/19 05/26/19 11:47 16:31 22:53 POC Glucometer 184 98 133 05/27/19 06:03 POC Glucometer 133 Problem List - Problems (1) Hypertensive urgency Code(s): I16.0 - HYPERTENSIVE URGENCY (2) Afib Code(s): I48.91 - UNSPECIFIED ATRIAL FIBRILLATION Qualifiers: Atrial fibrillation type: unspecified persistent Qualified Code(s): I48.19 - Other persistent atrial fibrillation; I48.1 - Persistent atrial fibrillation (3) CHF (congestive heart failure) Code(s): I50.9 - HEART FAILURE, UNSPECIFIED Qualifiers: Heart failure type: combined systolic and diastolic Heart failure chronicity: acute on chronic Qualified Code(s): I50.43 - Acute on chronic combined systolic (congestive) and diastolic (congestive) heart failure (4) Diabetes mellitus Code(s): E11.9 - TYPE 2 DIABETES MELLITUS WITHOUT COMPLICATIONS Qualifiers: Diabetes mellitus type: type 2 (5) Hypertension Code(s): I10 - ESSENTIAL (PRIMARY) HYPERTENSION Qualifiers: Hypertension type: essential hypertension Qualified Code(s): I10 - Essential (primary) hypertension Assessment/Plan Hypertensive Urgency improved Decompensated CHF improving Atrial Fibrillation UTI HTN DM Prostate Ca - lasix - monitor urine output, creatinine - daily weights - O2 to keep SpO2 >90% - rate control - anticoagulation - ABX per primary Dr Justice ROWE
[2019-05-27] MEDS ORDERED: SPIRONOLACTONE 25 MG TABLET (FP) PO ONE (11:53)
[2019-05-28] MEDS: INSULIN SLIDING SCALE (NOVOLOG) 1 VIAL SQ SCH (06:53)
[2019-05-28] MEDS ORDERED: PT OWN MED DRAWER 7, Y5N ONE ×2 (09:24→09:40)
[2019-05-28] MEDS ORDERED: cefTRIAXone SODIUM 1 GM VIAL ONE (09:25)
[2019-05-28] MEDS ORDERED: DEXTROSE 5%-WATER - 50 ML IVPB ONE (09:25)
[2019-05-28] MEDS: APIXABAN 5 MG TABLET PO SCH (09:28)
[2019-05-28] MEDS: SACUBITRIL/VALSARTAN 49 MG-51 MG TABLET PO SCH (09:29)
[2019-05-28] MEDS: POTASSIUM CHLORIDE ORAL LIQUID 20 MEQ/15 ML PO SCH (09:29)
[2019-05-28] MEDS ORDERED: FUROSEMIDE 40 MG TABLET (FP) PO SCH (10:00)
[2019-05-28] MEDS ORDERED: SPIRONOLACTONE 25 MG TABLET (FP) PO SCH (10:00)
--- NOTE | 2019-05-28 10:35 | PN ---
Progress Note, Physician History of Present Illness: PULMONARY ALERT,COMFORTABLE,LESS DYSPNEIC - Current Medication List Current Medications: Active Medications Albuterol Sulfate (Ventolin 0.083% Nebulizer Soln -) 1 amp NEB Q1H PRN PRN Reason: SHORT OF BREATH/WHEEZING Apixaban (Eliquis -) 5 mg PO BID [facility] Last Admin: 05/28/19 09:28 Dose: 5 mg Furosemide (Lasix -) 40 mg PO DAILY [facility] Last Admin: 05/28/19 09:28 Dose: 40 mg Insulin Aspart (Novolog Vial Sliding Scale -) 1 vial SQ ACHS [facility]; Protocol Last Admin: 05/28/19 06:53 Dose: Not Given Metoprolol Succinate (Toprol Xl -) 50 mg PO BID [facility] Last Admin: 05/28/19 09:28 Dose: 50 mg Metoprolol Tartrate (Lopressor Injection -) 5 mg IVPUSH Q4H PRN PRN Reason: HYPERTENSION Potassium Chloride (Potassium Chloride Oral Liquid) 20 meq PO BID [facility] Last Admin: 05/28/19 09:29 Dose: 20 meq Sacubitril/Valsartan (Entresto 49 Mg-51 Mg Tablet) 1 tab PO BID [facility] Last Admin: 05/28/19 09:29 Dose: 1 tab Spironolactone (Aldactone -) 50 mg PO DAILY [facility] Last Admin: 05/28/19 09:28 Dose: 50 mg - Objective Vital Signs: Vital Signs Temperature 97.8 F 05/28/19 06:00 Pulse Rate 109 H 05/28/19 06:00 Respiratory Rate 18 05/28/19 06:00 Blood Pressure 133/76 05/28/19 06:00 O2 Sat by Pulse Oximetry (%) 95 05/27/19 21:00 Constitutional: Yes: Well Nourished, Calm Eyes: Yes: WNL HENT: Yes: WNL Neck: Yes: WNL Cardiovascular: Yes: Pulse Irregular, S1, S2 Respiratory: Yes: Rales (BIBASAIL) Gastrointestinal: Yes: Normal Bowel Sounds, Soft Extremities: Yes: WNL Edema: No Labs: Problem List - Problems (1) Hypertensive urgency Code(s): I16.0 - HYPERTENSIVE URGENCY (2) Afib Code(s): I48.91 - UNSPECIFIED ATRIAL FIBRILLATION Qualifiers: Atrial fibrillation type: unspecified persistent Qualified Code(s): I48.19 - Other persistent atrial fibrillation; I48.1 - Persistent atrial fibrillation (3) CHF (congestive heart failure) Code(s): I50.9 - HEART FAILURE, UNSPECIFIED Qualifiers: Heart failure type: combined systolic and diastolic Heart failure chronicity: acute on chronic Qualified Code(s): I50.43 - Acute on chronic combined systolic (congestive) and diastolic (congestive) heart failure (4) Diabetes mellitus Code(s): E11.9 - TYPE 2 DIABETES MELLITUS WITHOUT COMPLICATIONS Qualifiers: Diabetes mellitus type: type 2 (5) Hypertension Code(s): I10 - ESSENTIAL (PRIMARY) HYPERTENSION Qualifiers: Hypertension type: essential hypertension Qualified Code(s): I10 - Essential (primary) hypertension Assessment/Plan ASSESSMENT AND PLAN: Hypertensive Urgency improved Decompensated CHF improving Atrial Fibrillation UTI HTN DM Prostate Ca - lasix - monitor urine output, creatinine - daily weights - O2 to keep SpO2 >90% - rate control - anticoagulation DR ROWE
--- NOTE | 2019-05-28 10:53 | PN ---
Progress Note, Physician History of Present Illness: Dyspnea, cough, wheeze and LE edema improving with diuresis. Afib with improved rate-control. - Current Medication List Current Medications: Active Medications Albuterol Sulfate (Ventolin 0.083% Nebulizer Soln -) 1 amp NEB Q1H PRN PRN Reason: SHORT OF BREATH/WHEEZING Apixaban (Eliquis -) 5 mg PO BID [facility] Last Admin: 05/28/19 09:28 Dose: 5 mg Furosemide (Lasix -) 40 mg PO DAILY [facility] Last Admin: 05/28/19 09:28 Dose: 40 mg Insulin Aspart (Novolog Vial Sliding Scale -) 1 vial SQ ACHS [facility]; Protocol Last Admin: 05/28/19 06:53 Dose: Not Given Metoprolol Succinate (Toprol Xl -) 50 mg PO BID [facility] Last Admin: 05/28/19 09:28 Dose: 50 mg Metoprolol Tartrate (Lopressor Injection -) 5 mg IVPUSH Q4H PRN PRN Reason: HYPERTENSION Potassium Chloride (Potassium Chloride Oral Liquid) 20 meq PO BID [facility] Last Admin: 05/28/19 09:29 Dose: 20 meq Sacubitril/Valsartan (Entresto 49 Mg-51 Mg Tablet) 1 tab PO BID [facility] Last Admin: 05/28/19 09:29 Dose: 1 tab Spironolactone (Aldactone -) 50 mg PO DAILY [facility] Last Admin: 05/28/19 09:28 Dose: 50 mg - Objective Vital Signs: Vital Signs Temperature 97.8 F 05/28/19 06:00 Pulse Rate 109 H 05/28/19 06:00 Respiratory Rate 18 05/28/19 06:00 Blood Pressure 133/76 05/28/19 06:00 O2 Sat by Pulse Oximetry (%) 95 05/27/19 21:00 Constitutional: Yes: No Distress, Calm, Thin Neck: Yes: Supple Cardiovascular: Yes: Pulse Irregular Respiratory: Yes: Regular, Diminished, On Nasal O2 Gastrointestinal: Yes: Normal Bowel Sounds, Soft Edema: No Labs: CBC, BMP 05/23/19 05:38 05/26/19 06:00 INR, PTT INR 1.27 (0.83-1.09) H 05/23/19 05:38 - ....Imaging Chest X-ray: Report Reviewed (Bilateral effusions R>L) EKG: Report Reviewed (Tele: Afib) Problem List - Problems (1) Afib Code(s): I48.91 - UNSPECIFIED ATRIAL FIBRILLATION Qualifiers: Atrial fibrillation type: unspecified persistent Qualified Code(s): I48.19 - Other persistent atrial fibrillation; I48.1 - Persistent atrial fibrillation (2) Diabetes mellitus Code(s): E11.9 - TYPE 2 DIABETES MELLITUS WITHOUT COMPLICATIONS Qualifiers: Diabetes mellitus type: type 2 (3) Dyspnea Code(s): R06.00 - DYSPNEA, UNSPECIFIED (4) Hypertension Code(s): I10 - ESSENTIAL (PRIMARY) HYPERTENSION Qualifiers: Hypertension type: essential hypertension Qualified Code(s): I10 - Essential (primary) hypertension (5) CHF (congestive heart failure) Code(s): I50.9 - HEART FAILURE, UNSPECIFIED Qualifiers: Heart failure type: combined systolic and diastolic Heart failure chronicity: acute on chronic Qualified Code(s): I50.43 - Acute on chronic combined systolic (congestive) and diastolic (congestive) heart failure Assessment/Plan 05/24/2019 Echo: Normal LV size with mod-severe LVEF 30-35%, normal RV fxn, mild LAE, mod-severe MR, TR, RVSP 39 mmHg, mild-mod MG 16 mmHg, mild AR, pleural effusion, trace pericardial effusions 03/15/2016 Echo: Normal LV size and low normal LV fxn, normal RV size and fxn, mild LAE, mild MR, tr TR, AR 1. Acute on chronic diastolic/systolic heart failure with bilateral pleural effusions 2. Persistent atrial fibrillation with RVR [id number] noncompliant with Eliquis 3. HTN heart disease with HTN urgency improving 4. Type 2 DM 5. Parkinson's Disease 6. UTI 7. Prostate Ca s/p hormone therapy tx 8. Toxic metabolic encephelopathy improving PLAN: 1. Change to oral diuresis with monitor diuretic response, renal fxn and electrolytes, BD, O2 to keep SpO2 >90%, replete K 2. Continue Toprol XL 50 bid, Lopressor 5mg IV PRN, monitor rate-response, Aldactone 50 qd, Entresto 49/51 bid 3. Continue Eliquis 5 mg BID given elevated risk score, emphasized importance of medication and diet compliance 4. Completed empiric abx per C&S 5. PT as tolerated->SNF
[2019-05-28 11:14] VITALS: BP 115/70; PULSE 99; TEMP 97.9
== END 2019-05-28 11:15 | DRG 291 ==
LOC: JER 17:21 → JERBED 22:18 → JICU 05-23 01:24 → J4W 05-23 17:58
PROVIDERS: ADMIT Internal Medicine; ATTEND Internal Medicine
DX: I11.0 Hypertensive heart disease with heart failure (principal); G93.41 Metabolic encephalopathy; I16.1 Hypertensive emergency; I48.19 Other persistent atrial fibrillation; N39.0 Urinary tract infection, site not specified; R41.82 Altered mental status, unspecified; G20 Parkinson's disease; I50.43 Acute on chronic combined systolic (congestive) and diastolic (congestive) heart failure; E11.9 Type 2 diabetes mellitus without complications; I48.0 Paroxysmal atrial fibrillation; I10 Essential (primary) hypertension; Z87.891 Personal history of nicotine dependence; Z91.19 Patient's noncompliance with other medical treatment and regimen; Z85.46 Personal history of malignant neoplasm of prostate
CPT/HCPCS: 36415; 36600; 71045-TC-FY; 71046-TC-FY; 71275-TC; 74019-TC-FY; 80048; 80053; 80061; 81003; 82550; 82803; 82962; 83036; 83605; 83721; 83735; 83880; 84100; 84443; 84484; 85025; 85379; 85610; 85730; 87040; 87086; 90670; 93005; 93010; 93306-TC; 93970-TC; 94660; 97116-GP; 97161-GP; 99285-25; Q9967